=== PATIENT | female | born 1930 | race Hispanic/Latino ===

== ENCOUNTER 2017-06-07 11:44 | Inpatient (IN) | payer MEDICARE ==
[2017-06-07] MEDS ORDERED: Albuterol-Ipratrop 3 mg / 0.5 (3 ml) UD IH STA ×2 (11:58→13:28)
--- NOTE | 2017-06-07 12:02 | ED PDOC ---
HPI: SOB/CHF/COPD Time Seen by Provider: 06/07/17 11:49 Chief Complaint (Nursing): Shortness Of Breath History Per: Patient, EMS Onset/Duration Of Symptoms: Other (4 weeks) Current Symptoms Are (Timing): Still Present Severity: Mild Associated Symptoms: denies: Fever, Chest Pain, Productive Cough Additional Complaint(s): Brought by EMS c/o chronic SOB assoc with nonproductive cough. Denies fever or chest pain. Also c/o bruising to arms chest abd and torso x 4 weeks. Past Medical History Vital Signs: Last Vital Signs Temp 98.2 F 06/07/17 12:09 Pulse 89 06/07/17 15:20 Resp 28 H 06/07/17 12:09 BP 152/85 H 06/07/17 13:14 Pulse Ox 100 06/07/17 12:09 - Medical History PMH: HTN - Family History Family History: States: Unknown Family Hx - Social History Current smoker - smoking cessation education provided: No - Allergies Allergies/Adverse Reactions: Allergies Allergy/AdvReac Type Severity Reaction Status Date / Time Penicillins Allergy RASH Verified 06/07/17 11:48 Review of Systems ROS Statement: Except As Marked, All Systems Reviewed And Found Negative Constitutional: Negative for: Fever Cardiovascular: Negative for: Chest Pain Respiratory: Positive for: Cough, Shortness of Breath. Negative for: Sputum Skin: Positive for: Bruising Physical Exam - Reviewed Nursing Documentation Reviewed: Yes Vital Signs Reviewed: Yes - Physical Exam Appears: Positive for: Non-toxic, No Acute Distress Head Exam: Positive for: ATRAUMATIC, NORMAL INSPECTION, NORMOCEPHALIC Skin: Positive for: Warm. Negative for: Normal Color (Multiple ecchymosis some with bullae on arms bilat, chest and abd and torso) Eye Exam: Positive for: EOMI, Normal appearance, PERRL ENT: Positive for: Normal ENT Inspection Neck: Positive for: Normal, Painless ROM Cardiovascular/Chest: Positive for: Regular Rate, Rhythm Respiratory: Positive for: Rhonchi, Wheezing. Negative for: Respiratory Distress Gastrointestinal/Abdominal: Positive for: Normal Exam, Bowel Sounds, Soft Back: Positive for: Normal Inspection Extremity: Positive for: Swelling (4+ edema pitting lower ext bilat.). Negative for: Calf Tenderness Neurologic/Psych: Positive for: Alert, Oriented - Laboratory Results Result Diagrams: 06/07/17 12:25 06/07/17 12:25 Disposition - Clinical Impression Clinical Impression: SIRS (systemic inflammatory response syndrome), Pleural effusion - Patient ED Disposition Is Patient to be Admitted: Yes - Disposition Disposition Time: 15:24 Condition: FAIR Forms: [facility] (Algerian) - Pt Status Changed To: Hospital Disposition Of: Inpatient - Admit Certification Admit to Inpatient:: After my assessment, the patient will require hospitalization for at least two midnights. This is because of the severity of symptoms shown, intensity of services needed, and/or the medical risk in this patient being treated as an outpatient. - POA Present On Arrival: None
[2017-06-07] MEDS ORDERED: Albuterol-Ipratrop 3 mg / 0.5 (3 ml) UD ONE ×2 (12:06→13:56)
--- NOTE | 2017-06-07 12:33 | RAD ---
HISTORY: cough COMPARISON: No prior. FINDINGS: LUNGS: Prominence of the interstitial markings bilaterally, likely chronic, with superimposed pulmonary vascular congestion. PLEURA: Small bilateral pleural effusions. No pneumothorax apparent. CARDIOVASCULAR: Atherosclerotic aortic calcifications. Cardiomediastinal silhouette enlarged. OSSEOUS STRUCTURES: Degenerative changes. VISUALIZED UPPER ABDOMEN: Normal. OTHER FINDINGS: None. IMPRESSION: Prominence of the bilateral interstitial markings, likely chronic, with superimposed pulmonary vascular congestion and small bilateral pleural effusions.
[2017-06-07 12:38] LABS: BASO # 0.1 K/uL (0.0-0.2); BASO % 0.5 % (0.0-2.0); EOS # 0.1 K/uL (0.0-0.7); EOS % 0.3 % (0.0-4.0); HEMOGLOBIN 10.6 g/dL (12.0-16.0); LYMPH # 2.3 K/uL (1.0-4.3); LYMPH % 10.4 % (20.0-40.0); MEAN CELL VOLUME 88.9 fl (81.0-99.0); MEAN CORPUSCULAR HEMOGLOBIN 28.6 pg (27.0-31.0); MEAN CORPUSCULAR HGB CONC 32.2 g/dL (33.0-37.0); MEAN PLATELET VOLUME 7.6 fl (7.2-11.7); MONO # 1.4 K/uL (0.0-0.8); MONO % 6.6 % (0.0-10.0); NEUT # 17.8 K/uL (1.8-7.0); NEUT % 82.2 % (50.0-75.0); NRBC % 0.1 % (0.0-0.0); RBC 3.72 Mil/uL (3.80-5.20); RED CELL DISTRIBUTION WIDTH 14.2 % (11.5-14.5); WHITE BLOOD COUNT 21.6 K/uL (4.8-10.8)
[2017-06-07 12:48] LABS: ALBUMIN 3.6 g/dL (3.5-5.0); ALT/SGPT 53 U/L (9-52); AST/SGOT 127 U/L (14-36); BLOOD UREA NITROGEN 29 mg/dl (7-17); CALCIUM 9.1 mg/dL (8.4-10.2); GFR AFRICAN-AMERICAN > 60; GFR NON-AFRICAN AMERICAN > 60
[2017-06-07 12:50] LABS: VENOUS BLOOD GAS PCO2 81 mmHg (40-60); VENOUS BLOOD GAS PO2 26 mm/Hg (30-55); VENOUS BLOOD PH 7.21 (7.32-7.43)
[2017-06-07 12:54] LABS: B-TYPE NATRIURETIC PEPTIDE 7430 pg/ml (0-900)
[2017-06-07] MEDS ORDERED: Sodium Chloride 0.9% 1,000 ML IV STA ×2 (13:00→13:49)
[2017-06-07] MEDS ORDERED: Vancomycin 1 g Inj ONE (13:10)
[2017-06-07 14:39] LABS: INR 1.6 (0.9-1.2); PROTHROMBIN TIME 18.1 Seconds (9.8-13.1)
--- NOTE | 2017-06-07 15:51 | CP.PCM.HP ---
History of Present Illness - History of Present Illness History of Present Illness: CC: shortness of breath HPI: 86 F PMH HTN, presents to the emergency room with a one day history of severe, worsening, dyspnea, associated with bilateral lower extremity edema. The severe lower extremity edema has been persistent for the past couple weeks, and patient has been taking diuretics without improvement. Patient also presents with well circumscribed violaceous nonelevated no depressed patches, fragile/friable thin skin, and bleed when disrupted. Patient has seen granulizing machine operator who prescribed a cream and oral steroids which helped approximately 1-2 months ago. 5 days prior to admission patient was reinitiated on oral steroids for re-eruption of these lesions. 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 Patient VBG showed some retention, and pt was placed on BIPAP. Lasix administered, upon berumen insertion, 1000cc output urine. UA and UCx pending. WBC 21K, on arrival to ER pt was tachycardic. la 3.5. BNP 7430.+coagulopathy INR 1.6. AST/ALT 127/53. Procalcitonin pending. HD stable, NAD. Admit to TELE for SIRS, respiratory acidosis, dyspnea due to possible CHF / volume overload Echo ordered, rule out PE, azotemia, coagulopathy. ROS: per HPI all other systems reviewed and negative FH: HTN, DM other history as below. Present on Admission - Present on Admission Any Indicators Present on Admission: No Past Patient History - Past Social History Smoking Status: Never Smoked - CARDIAC Hx Hypertension: Yes - PSYCHIATRIC Hx Substance Use: No - SURGICAL HISTORY Hx Surgeries: Yes - ANESTHESIA Hx Anesthesia: No Meds Allergies/Adverse Reactions: Allergies Allergy/AdvReac Type Severity Reaction Status Date / Time Penicillins Allergy RASH Verified 06/07/17 11:48 Physical Exam - Constitutional Appears: Non-toxic, No Acute Distress - Head Exam Head Exam: ATRAUMATIC, NORMOCEPHALIC - Eye Exam Eye Exam: EOMI, Normal appearance, PERRL Pupil Exam: NORMAL ACCOMODATION - ENT Exam ENT Exam: Mucous Membranes Moist, Normal Oropharynx - Respiratory Exam Respiratory Exam: Rales, Wheezes, NORMAL BREATHING PATTERN - Cardiovascular Exam Cardiovascular Exam: RRR, +S1, +S2 - GI/Abdominal Exam GI & Abdominal Exam: Normal Bowel Sounds, Soft. absent: Mass, Tenderness - Extremities Exam Extremities exam: Positive for: normal capillary refill, pedal edema, pedal pulses present - Back Exam Back exam: absent: CVA tenderness (L), CVA tenderness (R) - Neurological Exam Neurological exam: Alert, Oriented x3 - Psychiatric Exam Psychiatric exam: Normal Affect, Normal Mood - Skin Skin Exam: Dry, Warm Results - Vital Signs Recent Vital Signs: Last Vital Signs Temp 98.2 F 06/07/17 12:09 Pulse 83 06/07/17 15:49 Resp 15 06/07/17 15:49 BP 156/92 H 06/07/17 15:49 Pulse Ox 100 06/07/17 15:49 - Labs Result Diagrams: 06/07/17 12:25 06/07/17 12:25 Labs: Laboratory Results - last 24 hr 06/07/17 06/07/17 06/07/17 12:25 12:25 12:41 WBC 21.6 H RBC 3.72 L Hgb 10.6 L Hct 33.1 L MCV 88.9 MCH 28.6 MCHC 32.2 L RDW 14.2 Plt Count 585 H MPV 7.6 Neut % (Auto) 82.2 H Lymph % (Auto) 10.4 L Person % (Auto) 6.6 Eos % (Auto) 0.3 Baso % (Auto) 0.5 Neut # 17.8 H Lymph # 2.3 Person # 1.4 H Eos # 0.1 Baso # 0.1 PT INR D-Dimer, Quantitative pO2 26 L VBG pH 7.21 L VBG pCO2 81 H* VBG HCO3 24.8 VBG Total CO2 34.9 H VBG O2 Sat (Calc) 44.3 VBG Base Excess 2.0 VBG Potassium 3.9 Glucose 195 H Lactate 3.5 H FiO2 21.0 Crit Value Called To Duncan fonseca Crit Value Called By 23 Crit Value Read Back Y Blood Gas Notified Time 1245 Sodium 140 136.0 Potassium 4.1 Chloride 99 100.0 Carbon Dioxide 29 Anion Gap 16 BUN 29 H Creatinine 0.7 Est GFR ( Amer) > 60 Est GFR (Non-Af Amer) > 60 Random Glucose 197 H Calcium 9.1 Total Bilirubin 0.6 AST 127 H ALT 53 H Alkaline Phosphatase 101 Troponin I 0.0750 NT-Pro-B Natriuret Pep 7430 H Total Protein 7.3 Albumin 3.6 Globulin 3.7 Albumin/Globulin Ratio 1.0 Venous Blood Potassium 3.9 06/07/17 13:48 WBC RBC Hgb Hct MCV MCH MCHC RDW Plt Count MPV Neut % (Auto) Lymph % (Auto) Person % (Auto) Eos % (Auto) Baso % (Auto) Neut # Lymph # Person # Eos # Baso # PT 18.1 H INR 1.6 H D-Dimer, Quantitative 574 H pO2 VBG pH VBG pCO2 VBG HCO3 VBG Total CO2 VBG O2 Sat (Calc) VBG Base Excess VBG Potassium Glucose Lactate FiO2 Crit Value Called To Crit Value Called By Crit Value Read Back Blood Gas Notified Time Sodium Potassium Chloride Carbon Dioxide Anion Gap BUN Creatinine Est GFR ( Amer) Est GFR (Non-Af Amer) Random Glucose Calcium Total Bilirubin AST ALT Alkaline Phosphatase Troponin I NT-Pro-B Natriuret Pep Total Protein Albumin Globulin Albumin/Globulin Ratio Venous Blood Potassium Assessment & Plan - Assessment and Plan (Free Text) Plan: 86 F PMH HTN, presents to the emergency room with a one day history of severe, worsening, dyspnea, associated with bilateral lower extremity edema. The severe lower extremity edema has been persistent for the past couple weeks, and patient has been taking diuretics without improvement. Patient also presents with well circumscribed violaceous nonelevated no depressed patches, fragile/ friable thin skin, and bleed when disrupted all over body. Patient has seen granulizing machine operator who prescribed a cream and oral steroids which helped approximately 1-2 months ago. 5 days prior to admission patient was reinitiated on oral steroids for re-eruption of these lesions. 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 Patient VBG showed some retention, and pt was placed on BIPAP. Lasix administered, upon berumen insertion, 1000cc output urine. UA and UCx pending. WBC 21K, on arrival to ER pt was tachycardic. la 3.5. BNP 7430.+coagulopathy INR 1.6. AST/ALT 127/53. Procalcitonin pending. HD stable, NAD. Admit to TELE for SIRS, respiratory acidosis, dyspnea due to possible CHF / volume overload Echo ordered, rule out PE, azotemia, coagulopathy. SIRS WBC 21K (poss 2/2 steroids but with high neutr, no bands), afebrile, HR 108, tachypneic in ED, LA 3.5, repeat pending Vancomycin one dose given UA, UCX pending, will determine abx based on results +berumen with 1000cc out on insertion Procalcitonin pending CXR+ interstitial markings, chronic with pulm vascular congestion and small bilateral pleural effusions Respiratory Acidosis Dyspnea possible due to CHF/volume overload rule out PE, CTA pending CXR+ interstitial markings, chronic with pulm vascular congestion and small bilateral pleural effusions pH 7.21, pCO2 81 patient on bipap, saturating well, mentating well Echo pending repeat ABG in AM. continue bronchodilators PRN continue diuresis with LASIX 40 IV Q12 Coagulopathy Elevated Transaminases AST/ALT 127/53 INR 1.6 monitor Skin Lesions well circumscribed violaceous nonelevated no depressed patches, fragile/ friable thin skin, and bleed when disrupted all over bod Dexamethasone 2 mg daily patient did not like taking prednisone Azotemia monitor HTN Lisinopril initiated as patient does not have home med name VTE ppx Lovenox
[2017-06-07] MEDS ORDERED: Sodium Chloride 0.9% 50 ML IV ONE (16:01)
[2017-06-07] MEDS ORDERED: Iodixanol 320 MG/ML 100 ML BOTTLE IV ONE (16:01)
--- NOTE | 2017-06-07 18:10 | CT ---
PROCEDURE: CT Chest with contrast (Pulmonary Angiogram) HISTORY: Elevated d dimer COMPARISON: 2017. Single-view chest TECHNIQUE: Axial computed tomography images were obtained of the chest in the pulmonary arterial phase of enhancement. Coronal and sagittal reformatted images were created and reviewed. Intravenous contrast dose: 65 cc Visipaque 320 Mean Hounsfield unit values in the main pulmonary artery: 362.48 Radiation dose: Total exam DLP = 190.21 mGy-cm. This CT exam was performed using one or more of the following dose reduction techniques: Automated exposure control, adjustment of the mA and/or kV according to patient size, and/or use of iterative reconstruction technique. FINDINGS: PULMONARY ARTERIES: Unremarkable. No pulmonary embolism. AORTA: No acute findings. No thoracic aortic aneurysm. LUNGS: Lower lobe atelectasis. Ground-glass appearance to pulmonary parenchyma suggests a component of pulmonary edema. PLEURAL SPACES: Small bilaterally symmetric pleural effusions. HEART: Cardiomegaly, mild CHF. Incompletely visualized small pericardial effusion. LYMPH NODES: No lymphadenopathy. BONES, CHEST WALL: Unremarkable. No fracture or destructive lesion OTHER FINDINGS: Cholelithiasis without CT evidence of acute cholecystitis. IMPRESSION: Unremarkable CT pulmonary angiogram. No pulmonary embolus. Cardiomegaly, CHF and mild pulmonary edema. Incompletely visualized pericardial effusion. Cholelithiasis without CT evidence of acute cholecystitis.
--- NOTE | 2017-06-07 21:34 | CARD ---
APPROVED REPORT EKG Measurement Heart [id number] <Conclusion> Sinus tachycardia Nonspecific T wave abnormality Abnormal ECG
[2017-06-08 01:16] LABS: URINE APPEARANCE CLEAR (CLEAR); URINE BILIRUBIN NEGATIVE (NEGATIVE); URINE BLOOD NEGATIVE (NEGATIVE); URINE COLOR YELLOW (YELLOW); URINE GLUCOSE (UA) NEG (Normal); URINE LEUKOCYTE ESTERASE NEG Leu/uL (Negative); URINE NITRATE NEGATIVE (NEGATIVE); URINE PROTEIN NEGATIVE (NEGATIVE); URINE UROBILINOGEN 0.2-1.0 mg/dL (0.2-1.0)
[2017-06-08 05:43] LABS: BLOOD UREA NITROGEN 25 mg/dl (7-17); CALCIUM 8.5 mg/dL (8.4-10.2); GFR AFRICAN-AMERICAN > 60; GFR NON-AFRICAN AMERICAN > 60
[2017-06-08 05:50] LABS: BASO % 0.1 % (0.0-2.0); HEMOGLOBIN 8.8 g/dL (12.0-16.0); LYMPH # 1.2 K/uL (1.0-4.3); LYMPH % 21.2 % (20.0-40.0); MEAN CELL VOLUME 88.5 fl (81.0-99.0); MEAN CORPUSCULAR HEMOGLOBIN 28.7 pg (27.0-31.0); MEAN CORPUSCULAR HGB CONC 32.4 g/dL (33.0-37.0); MEAN PLATELET VOLUME 7.7 fl (7.2-11.7); MONO # 0.5 K/uL (0.0-0.8); MONO % 8.2 % (0.0-10.0); NEUT # 4.1 K/uL (1.8-7.0); NEUT % 70.5 % (50.0-75.0); NRBC % 0.1 % (0.0-0.0); RBC 3.08 Mil/uL (3.80-5.20); RED CELL DISTRIBUTION WIDTH 13.9 % (11.5-14.5); WHITE BLOOD COUNT 5.8 K/uL (4.8-10.8)
[2017-06-08] MEDS: Enoxaparin 40 mg Syringe SC SCH (08:38)
[2017-06-08] MEDS ORDERED: Potassium Chloride 20 mEq ER Tab PO ONE ×2 (08:47→19:18)
--- NOTE | 2017-06-08 10:15 | CP.PCM.PN ---
Subjective - Date & Time of Evaluation Date of Evaluation: 06/08/17 Time of Evaluation: 09:30 - Subjective Subjective: SOB better - Bipap changed to 3 liters NC noted tachycardia- restarted Coreg denies CP sl SOB but very much better denies pain nor itching of skin lesions [facility] called to get med list Called Dr Victor- out of town - I was able to get copy of last progress note- reveiwed- Pt has hx of HTN, HLD,Bullous skin lesion, DM,CKD - on Lasix,Coreg Pravastatin and prednisone at home Objective - Vital Signs/Intake and Output Vital Signs (last 24 hours): Temp Pulse Resp BP Pulse Ox 97.6 F 82 20 101/73 100 06/08/17 08:00 06/08/17 09:00 06/08/17 08:00 06/08/17 08:39 06/08/17 08:00 Intake and Output: 06/08/17 06/08/17 06:59 18:59 Intake Total 300 Output Total 2100 Balance -1800 - Medications Medications: Current Medications Dexamethasone (Decadron) 2 mg PO DAILY [facility] Last Admin: 06/08/17 08:38 Dose: 2 mg Enoxaparin Sodium (Lovenox) 40 mg SC DAILY [facility] PRN Reason: Protocol Last Admin: 06/08/17 08:38 Dose: 40 mg Furosemide (Lasix) 40 mg IVP Q12 [facility] Last Admin: 06/08/17 08:38 Dose: 40 mg Lisinopril (Zestril) 5 mg PO DAILY [facility] Last Admin: 06/08/17 08:39 Dose: 5 mg - Labs Labs: 06/08/17 04:20 06/08/17 04:20 PT 18.1 Seconds (9.8-13.1) H 06/07/17 13:48 INR 1.6 (0.9-1.2) H 06/07/17 13:48 - Constitutional Appears: Chronically Ill - Head Exam Head Exam: ATRAUMATIC, NORMAL INSPECTION, NORMOCEPHALIC - Eye Exam Eye Exam: EOMI, Normal appearance Pupil Exam: NORMAL ACCOMODATION - ENT Exam ENT Exam: Mucous Membranes Dry, Normal External Ear Exam Additional comments: no thrush - Neck Exam Neck Exam: Full ROM. absent: Meningismus - Respiratory Exam Respiratory Exam: Rales, Rhonchi. absent: Wheezes Additional comments: basilar rales - Cardiovascular Exam Cardiovascular Exam: Tachycardia, REGULAR RHYTHM, +S1, +S2 - GI/Abdominal Exam GI & Abdominal Exam: Soft, Normal Bowel Sounds. absent: Tenderness - Extremities Exam Extremities Exam: Normal Capillary Refill, Pedal Edema. absent: Calf Tenderness - Back Exam Back Exam: Full ROM. absent: CVA tenderness (L), CVA tenderness (R) - Neurological Exam Neurological Exam: Alert, Awake, Oriented x3 Neuro motor strength exam: Left Upper Extremity: 5, Right Upper Extremity: 5, Left Lower Extremity: 5, Right Lower Extremity: 5 - Psychiatric Exam Psychiatric exam: Normal Affect, Normal Mood - Skin Skin Exam: Dry, Normal Color, Warm Assessment and Plan (1) Acute respiratory failure with hypoxia Status: Acute (2) Acute exacerbation of CHF (congestive heart failure) Status: Acute (3) Leukocytosis Status: Acute (4) Bullous lesion Status: Chronic (5) Anemia Status: Chronic (6) HTN (hypertension) Status: Chronic (7) SIRS (systemic inflammatory response syndrome) Status: Acute (8) DVT prophylaxis Status: Acute - Assessment and Plan (Free Text) Assessment: 86 y/o lady with hx of HTN, HLD, CKD,DM, and Bullous skin lesion, was brought in bec of SOB. ProBNP elevated. CXR shows Pulm Vascular congestion. (1) Acute respiratory failure with hypoxia sec to CHF exacerbation Status: Acute Pt was initially on Bipap, pt doing better after diuresis, will decrease to 3 liter NC Pulm consult (2) Acute exacerbation of CHF (congestive heart failure) Status: Acute ppprob systolic dysfunction ECHO rpt ProBNP cont IV Lasix restart Coreg no ED inh as ther was a question of poss drug eruption with Quinapril as outpt Got pt's med list from [place] as pt cannot remember meds she takes, I also called Dr Victor's office for more info Cardio consult (3) Leukocytosis Status: Acute prob sec to steroids , normalized without abx (4) Bullous lesion Status: Chronic Pt states she had skin biopsy done by Lighting Engineer ( ? Dr Arndt in [place]) and was started on Prednisone cont Decadron Dr [place] rec to start Doxy for the bullous lesions (5) Anemia Status: Chronic will monitor (6) HTN (hypertension) Status: Chronic reveiwed home meds obrained from [place] Coreg - cont IV lasix - d/c LIsinopril ( there was a ? of drug eruption when pt took Quinapril/HCTZ accdg to Dr Victor's office progress note) (7) SIRS (systemic inflammatory response syndrome) Status: Acute No signs of infection however pt came with SIRS sxs. (8) DVT prophylaxis Status: Acute Lovenox
--- NOTE | 2017-06-08 11:05 | CP.PCM.CON ---
History of Present Illness - History of Present Illness History of Present Illness: 86 F PMH HTN, presents to the emergency room with a one day history of severe, worsening, dyspnea, associated with bilateral lower extremity edema. The severe lower extremity edema has been persistent for the past couple weeks, and patient has been taking diuretics without improvement. Also pt has a rash Bullous Pemphigoid? and was recently given steroids PMH: Rheumatoid Arthritis EKG: NSR Monitor shows bouts of Tachycardia BNP 7430 Troponin: neg Hgb: 8.8 Past Patient History - Past Medical History & Family History Past Medical History?: Yes - Past Social History Smoking Status: Never Smoked - CARDIAC Hx Cardiac Disorders: Yes Hx Hypertension: Yes - PULMONARY Hx Respiratory Disorders: No - NEUROLOGICAL Hx Neurological Disorder: No - HEENT Hx HEENT Problems: No - RENAL Hx Chronic Kidney Disease: No - ENDOCRINE/METABOLIC Hx Endocrine Disorders: No - HEMATOLOGICAL/ONCOLOGICAL Hx Blood Disorders: No - INTEGUMENTARY Hx Dermatological Problems: No - MUSCULOSKELETAL/RHEUMATOLOGICAL Hx Musculoskeletal Disorders: No Hx Falls: No - GASTROINTESTINAL Hx Gastrointestinal Disorders: No - GENITOURINARY/GYNECOLOGICAL Hx Genitourinary Disorders: No - PSYCHIATRIC Hx Psychophysiologic Disorder: No Hx Substance Use: No - SURGICAL HISTORY Hx Surgeries: Yes Hx Cataract Extraction: Yes (right) Hx Orthopedic Surgery: Yes (left elbow surgery,bilateral knee replacement) - ANESTHESIA Hx Anesthesia: Yes Hx Anesthesia Reactions: No Hx Malignant Hyperthermia: No Has any member of the family had a problem w/ anesthesia?: No Meds Allergies/Adverse Reactions: Allergies Allergy/AdvReac Type Severity Reaction Status Date / Time Penicillins Allergy RASH Verified 06/07/17 11:48 - Medications Medications: Current Medications Dexamethasone (Decadron) 2 mg PO DAILY [facility] Last Admin: 06/08/17 08:38 Dose: 2 mg Enoxaparin Sodium (Lovenox) 40 mg SC DAILY [facility] PRN Reason: Protocol Last Admin: 06/08/17 08:38 Dose: 40 mg Furosemide (Lasix) 40 mg IVP Q12 [facility] Last Admin: 06/08/17 08:38 Dose: 40 mg Lisinopril (Zestril) 5 mg PO DAILY [facility] Last Admin: 06/08/17 08:39 Dose: 5 mg Physical Exam - Constitutional Appears: Well - Head Exam Head Exam: NORMAL INSPECTION - Eye Exam Eye Exam: Normal appearance - ENT Exam ENT Exam: Normal Exam - Neck Exam Neck exam: Positive for: Normal Inspection - Respiratory Exam Respiratory Exam: Rales - Cardiovascular Exam Cardiovascular Exam: REGULAR RHYTHM - Skin Skin Exam: Rash Additional comments: Bullous Pemphigoid ?? Results - Vital Signs Recent Vital Signs: Last Vital Signs Temp 97.6 F 06/08/17 08:00 Pulse 82 06/08/17 09:00 Resp 20 06/08/17 08:00 BP 101/73 06/08/17 08:39 Pulse Ox 100 06/08/17 08:00 - Labs Result Diagrams: 06/08/17 04:20 06/08/17 04:20 Labs: Laboratory Results - last 24 hr 06/07/17 06/07/17 06/07/17 12:25 12:25 12:41 WBC 21.6 H RBC 3.72 L Hgb 10.6 L Hct 33.1 L MCV 88.9 MCH 28.6 MCHC 32.2 L RDW 14.2 Plt Count 585 H MPV 7.6 Neut % (Auto) 82.2 H Lymph % (Auto) 10.4 L Pierce % (Auto) 6.6 Eos % (Auto) 0.3 Baso % (Auto) 0.5 Neut # 17.8 H Lymph # 2.3 Pierce # 1.4 H Eos # 0.1 Baso # 0.1 PT INR D-Dimer, Quantitative pO2 26 L VBG pH 7.21 L VBG pCO2 81 H* VBG HCO3 24.8 VBG Total CO2 34.9 H VBG O2 Sat (Calc) 44.3 VBG Base Excess 2.0 VBG Potassium 3.9 Glucose 195 H Lactate 3.5 H FiO2 21.0 Crit Value Called To Duncan fonseca Crit Value Called By 23 Crit Value Read Back Y Blood Gas Notified Time 1245 Sodium 140 136.0 Potassium 4.1 Chloride 99 100.0 Carbon Dioxide 29 Anion Gap 16 BUN 29 H Creatinine 0.7 Est GFR ( Amer) > 60 Est GFR (Non-Af Amer) > 60 Random Glucose 197 H Lactic Acid Calcium 9.1 Total Bilirubin 0.6 AST 127 H ALT 53 H Alkaline Phosphatase 101 Troponin I 0.0750 NT-Pro-B Natriuret Pep 7430 H Total Protein 7.3 Albumin 3.6 Globulin 3.7 Albumin/Globulin Ratio 1.0 Venous Blood Potassium 3.9 Urine Color Urine Appearance Urine pH Ur Specific [place] Urine Protein Urine Glucose (UA) Urine Ketones Urine Blood Urine Nitrate Urine Bilirubin Urine Urobilinogen Ur Leukocyte Esterase 06/07/17 06/07/17 06/07/17 13:48 15:50 18:55 WBC RBC Hgb Hct MCV MCH MCHC RDW Plt Count MPV Neut % (Auto) Lymph % (Auto) Pierce % (Auto) Eos % (Auto) Baso % (Auto) Neut # Lymph # Pierce # Eos # Baso # PT 18.1 H INR 1.6 H D-Dimer, Quantitative 574 H pO2 VBG pH VBG pCO2 VBG HCO3 VBG Total CO2 VBG O2 Sat (Calc) VBG Base Excess VBG Potassium Glucose Lactate FiO2 Crit Value Called To Crit Value Called By Crit Value Read Back Blood Gas Notified Time Sodium Potassium Chloride Carbon Dioxide Anion Gap BUN Creatinine Est GFR ( Amer) Est GFR (Non-Af Amer) Random Glucose Lactic Acid 1.4 Calcium Total Bilirubin AST ALT Alkaline Phosphatase Troponin I NT-Pro-B Natriuret Pep Total Protein Albumin Globulin Albumin/Globulin Ratio Venous Blood Potassium Urine Color Yellow Urine Appearance Clear Urine pH 6.0 Ur Specific [place] 1.010 Urine Protein Negative Urine Glucose (UA) Neg Urine Ketones Negative Urine Blood Negative Urine Nitrate Negative Urine Bilirubin Negative Urine Urobilinogen 0.2-1.0 Ur Leukocyte Esterase Neg 06/08/17 06/08/17 04:20 04:20 WBC 5.8 D RBC 3.08 L Hgb 8.8 L Hct 27.2 L MCV 88.5 MCH 28.7 MCHC 32.4 L RDW 13.9 Plt Count 306 D MPV 7.7 Neut % (Auto) 70.5 Lymph % (Auto) 21.2 Pierce % (Auto) 8.2 Eos % (Auto) 0.0 Baso % (Auto) 0.1 Neut # 4.1 Lymph # 1.2 Pierce # 0.5 Eos # 0.0 Baso # 0.0 PT INR D-Dimer, Quantitative pO2 VBG pH VBG pCO2 VBG HCO3 VBG Total CO2 VBG O2 Sat (Calc) VBG Base Excess VBG Potassium Glucose Lactate FiO2 Crit Value Called To Crit Value Called By Crit Value Read Back Blood Gas Notified Time Sodium 142 Potassium 3.4 L Chloride 100 Carbon Dioxide 32 H Anion Gap 13 BUN 25 H Creatinine 0.7 Est GFR ( Amer) > 60 Est GFR (Non-Af Amer) > 60 Random Glucose 130 H Lactic Acid Calcium 8.5 Total Bilirubin AST ALT Alkaline Phosphatase Troponin I NT-Pro-B Natriuret Pep Total Protein Albumin Globulin Albumin/Globulin Ratio Venous Blood Potassium Urine Color Urine Appearance Urine pH Ur Specific [place] Urine Protein Urine Glucose (UA) Urine Ketones Urine Blood Urine Nitrate Urine Bilirubin Urine Urobilinogen Ur Leukocyte Esterase Assessment & Plan (1) Acute left systolic heart failure Assessment and Plan: agree with Lasix daily and Coreg to control tachycardia Status: Acute
[2017-06-08] MEDS ORDERED: Levalbuterol 1.25 MG/3 ML Inhal Soln UD INH PRN (11:31)
--- NOTE | 2017-06-08 16:20 | CARD ---
APPROVED REPORT EKG Measurement Heart [id number] <Conclusion> Sinus rhythm with occasional premature ventricular complexes and fusion complexes Anterior infarct, age undetermined ST & T wave abnormality, consider anterior ischemia Abnormal ECG
--- NOTE | 2017-06-08 16:47 | CARD ---
APPROVED REPORT EXAM: Two-dimensional and M-mode echocardiogram with Doppler and color Doppler. Other Information Quality : FairRhythm : INDICATION Dyspnea Pleural Effusion 2D DIMENSIONS IVSd1.19 (0.7-1.1cm)LVDd4.12 (3.9-5.9cm) PWd2.01 (0.7-1.1cm)IVSs1.26 (0.8-1.2cm) LVDs3.75 (2.5-4.0cm)FS (%) 9.0 % PWs1.60 (0.8-1.2cm)LVEF (%)40.0 (>50%) M-Mode DIMENSIONS IVSd0.34 (0.7-1.1cm)LVDd5.36 (4.0-5.6cm) PWd0.34 (0.7-1.1cm)IVSs1.14 cm FS (%) 32 %LVDs3.65 (2.0-3.8cm) PWs2.62 cm Mitral Valve MV E Hcqjekws54.0cm/sMV E Peak Gr.141mmHgMV A Lizjwyin88.7cm/s E/A ratio0.9 TDI Lateral E' Peak V12.22cm/sE/Lateral E'7.2E/Medial E'0.0 Tricuspid Valve TR Peak Npoikylb108qc/sRAP [id number] Peak Gr.38mmHg [id number] LEFT VENTRICLE The left ventricle is normal size. There is normal left ventricular wall thickness. The systolic function is moderately impaired. Apical and Septal hypokinesis Transmitral Doppler flow pattern is Grade I-abnormal relaxation pattern. RIGHT VENTRICLE The right ventricle is normal size. There is normal right ventricular wall thickness. The right ventricular systolic function is normal. ATRIA The left atrium is mildly dilated. The right atrium is moderately dilated. AORTIC VALVE The aortic valve is mildly thickened. No aortic regurgitation is present. There is no aortic valvular stenosis. MITRAL VALVE The mitral valve is mildly thickened. There is no mitral valve stenosis. Mitral regurgitation is moderate. TRICUSPID VALVE The tricuspid valve is normal in structure. There is mild tricuspid regurgitation. There is mild to moderate pulmonary hypertension. PULMONIC VALVE The pulmonary valve is normal in structure. There is trace pulmonic valvular regurgitation. GREAT VESSELS The aortic root is normal in size. The IVC was not visualized. PERICARDIAL EFFUSION There is a small circumferential pericardial effusion. There is small left pleural effusion. <Conclusion> The left ventricle is normal size. There is normal left ventricular wall thickness. The systolic function is moderately impaired. Apical and Septal hypokinesis Transmitral Doppler flow pattern is Grade I-abnormal relaxation pattern. Mitral regurgitation is moderate. There is mild tricuspid regurgitation. There is mild to moderate pulmonary hypertension.
[2017-06-08] MEDS: Insulin Lispro (humaLOG) 100 Units/ml Inj SC SCH (17:13)
--- NOTE | 2017-06-08 21:23 | CON ---
DATE: HISTORY OF PRESENT ILLNESS: Ms. Suazo is an 86-year-old female who was admitted via the emergency room because of shortness of breath and edema of the legs. She indicates that this has been worsened over the past several weeks. She was seen by her primary care doctor because of bullous skin lesions and was referred to a rice milling supervisor who had it biopsied. She was placed on steroids, which improved the lesions, but then a second course of steroids, made thins worsen.. She indicates that she became short of breath and she blamed the shortness of breath with some reaction from the steroids. Her legs also swelled up and she, therefore, sought help in the hospital. PAST MEDICAL HISTORY: Hypertension, knee surgeries, shoulder surgeries, and rheumatoid arthritis. FAMILY HISTORY: Nonrevealing. SOCIAL HISTORY: She does not smoke or drink and lives alone, but she has a very supportive daughter. PHYSICAL EXAMINATION: GENERAL: The patient is alert and oriented, appears to be much more comfortable since admission. She was originally placed on a BiPAP machine, but now is on nasal cannula oxygen. SKIN: Shows diffuse bullous lesions, which are drying up. VITAL SIGNS: Blood pressure 101/73, pulse of 82, respiratory rate 20 per minute. She is afebrile. HEENT: Mouth shows fair hygiene. NECK: JVP flat. LUNGS: Fair aeration bilaterally with few basal rales. HEART: S1 and S2. Few extrasystole. BREASTS: Normal. ABDOMEN: Soft, nontender, no organomegaly. EXTREMITIES: A 2+ pitting pedal edema bilaterally. CENTRAL NERVOUS SYSTEM: Grossly intact. LABORATORY DATA: WBC 5.8, down from 21.6; hemoglobin 8.8, down from 10.6; platelet count 306,000. Sodium 142, potassium 3.4, BUN 25, and creatinine 0.7. ProBNP 7430. Troponin 0.0750. ABGs; pH of 7.21, pCO2 of 81, bicarbonate 24.8, and O2 saturation 44.3, this is venous blood gas. Chest x-ray, prominence of bilateral interstitial markings, likely chronic with superimposed pulmonary vascular congestion, bilateral pleural effusions. CT scan of the chest is remarkable for no evidence of pulmonary embolism, cardiomegaly, CHF, mild pulmonary edema, incompletely visualized pericardial effusion. EKG; sinus tachycardia, nonspecific ST-T abnormalities. 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 One also has to rule out shortness of breath due to rheumatoid lung disease and also infectious etiology of shortness of breath in a patient with bullous skin lesions despite not having fever, chills, or cough. The patient also has a history hypertension and rheumatoid arthritis. PLAN: Would be aerosolized bronchodilators, BiPAP at nighttime. Continue therapy as ordered. Oxygen supplementation already ordered. We will give low dose of Vibramycin q. 12 hours to see if it helps with the bullous pemphigoid or upper respiratory tract inflammation. The patient has already been started back on Decadron to help decrease skin lesions and pulmonary problems. Cardiology evaluation, possible echocardiogram would be in order to evaluate for pericardial effusion. We will continue to follow with you. Further therapy will depend on findings. Edwin East MD MTDJessica
[2017-06-09] MEDS: Insulin Lispro (humaLOG) 100 Units/ml Inj SC SCH ×5 (00:24→23:12)
[2017-06-09 06:04] LABS: MEAN CELL VOLUME 88.6 fl (81.0-99.0); MEAN CORPUSCULAR HEMOGLOBIN 28.5 pg (27.0-31.0); MEAN CORPUSCULAR HGB CONC 32.2 g/dL (33.0-37.0); RBC 3.14 Mil/uL (3.80-5.20); RED CELL DISTRIBUTION WIDTH 14.1 % (11.5-14.5); WHITE BLOOD COUNT 8.1 K/uL (4.8-10.8)
[2017-06-09 06:20] LABS: INR 1.2 (0.9-1.2); PROTHROMBIN TIME 13.1 Seconds (9.8-13.1)
[2017-06-09 06:23] LABS: LDL CHOLESTEROL 104 mg/dL (0-129)
[2017-06-09 06:30] LABS: BLOOD UREA NITROGEN 32 mg/dl (7-17); CALCIUM 8.5 mg/dL (8.4-10.2); GFR AFRICAN-AMERICAN > 60; GFR NON-AFRICAN AMERICAN > 60; HDL CHOLESTEROL 22 MG/DL (30-70)
[2017-06-09 06:34] LABS: B-TYPE NATRIURETIC PEPTIDE 16800 pg/ml (0-900)
[2017-06-09] MEDS: Enoxaparin 40 mg Syringe SC SCH (08:22)
--- NOTE | 2017-06-09 09:08 | CON ---
DATE: HISTORY OF PRESENT ILLNESS: The patient with a past medical history of hypertension and has been referred autoimmune disease? The patient recently had skin biopsy, I am not sure what are the diagnoses; pemphigus? The patient started on steroid in the recent past and she is still taking steroid and admitted with shortness of breath, weakness and the patient has been followed up by Dr. Fontana as outpatient and I am not sure if the patient has detail of any kidney problem at the present. We will try to get further information from Dr. Fontana. PAST MEDICAL HISTORY: As we mentioned above, related to hypertension. In addition to the skin disease, diffuse rash with recent skin biopsy. FAMILY HISTORY: Diabetes mellitus. REVIEW OF SYSTEMS: The rest of the systems reviewed as okay except what has been mentioned above. PHYSICAL EXAMINATION: VITAL SIGNS: Blood pressure 145/81, pulse 108. NECK: Supple. CHEST: Few rhonchi. HEART: No rubs. ABDOMEN: Soft. EXTREMITIES: Have 1+ pitting edema. SKIN: Showed diffuse skin lesion throughout the chest wall, extremity among other area. LABORATORY DATA: Labs showed BUN 29, creatinine 0.7. The rest of the chemistry is okay. Urinalysis nonspecific. IMPRESSION: The patient diagnosed what appeared to be autoimmune disease. She is receiving steroid. I will order perhaps PJ and double-stranded DNA at the present until we get further information from the skin biopsy. The patient also has azotemia, probably related to the congestive heart failure and she has been receiving treatment. Eric Tafoya MD
--- NOTE | 2017-06-09 09:23 | CP.PCM.PN ---
Subjective - Date & Time of Evaluation Date of Evaluation: 06/09/17 Time of Evaluation: 09:23 - Subjective Subjective: sob im proving no chest pains skin rash present with some new blisters on back Objective - Vital Signs/Intake and Output Vital Signs (last 24 hours): Temp Pulse Resp BP Pulse Ox 97.1 F L 74 20 161/65 H 100 06/09/17 08:00 06/09/17 08:18 06/09/17 08:00 06/09/17 08:21 06/09/17 08:00 Intake and Output: 06/09/17 06/09/17 06:59 18:59 Intake Total 300 Output Total 1000 Balance -700 - Medications Medications: Current Medications Carvedilol (Coreg) 12.5 mg PO Q12 [facility] Last Admin: 06/09/17 08:18 Dose: 12.5 mg Dexamethasone (Decadron) 2 mg PO DAILY [facility] Last Admin: 06/09/17 08:19 Dose: 2 mg Enoxaparin Sodium (Lovenox) 40 mg SC DAILY [facility] PRN Reason: Protocol Last Admin: 06/09/17 08:22 Dose: 40 mg Famotidine (Pepcid) 20 mg PO BID [facility] Last Admin: 06/09/17 08:22 Dose: 20 mg Furosemide (Lasix) 40 mg IVP Q12 [facility] Last Admin: 06/09/17 08:21 Dose: 40 mg Doxycycline Hyclate 100 mg/ (Sodium Chloride) 100 mls @ 100 mls/hr IVPB Q12 [facility] PRN Reason: Protocol Last Admin: 06/08/17 21:30 Dose: 100 mls/hr Insulin Human Lispro (Humalog) 0 units SC ACHS [facility] PRN Reason: Protocol Last Admin: 06/09/17 08:19 Dose: 2 units Levalbuterol HCl (Xopenex) 1.25 mg INH RQ8 PRN PRN Reason: Shortness of Breath - Labs Labs: 06/09/17 05:30 06/09/17 05:30 PT 13.1 Seconds (9.8-13.1) D 06/09/17 05:30 INR 1.2 (0.9-1.2) 06/09/17 05:30 - Constitutional Appears: Chronically Ill - Head Exam Head Exam: ATRAUMATIC, NORMAL INSPECTION, NORMOCEPHALIC - Eye Exam Eye Exam: EOMI, Normal appearance, PERRL Pupil Exam: NORMAL ACCOMODATION, PERRL - ENT Exam ENT Exam: Mucous Membranes Moist, Normal Exam - Neck Exam Neck Exam: Full ROM, Normal Inspection. absent: Lymphadenopathy - Respiratory Exam Respiratory Exam: Decreased Breath Sounds, Rales, NORMAL BREATHING PATTERN - Cardiovascular Exam Cardiovascular Exam: REGULAR RHYTHM, +S1, +S2. absent: Murmur - GI/Abdominal Exam GI & Abdominal Exam: Soft, Normal Bowel Sounds. absent: Tenderness - Rectal Exam Rectal Exam: NORMAL INSPECTION - Extremities Exam Extremities Exam: Full ROM, Normal Capillary Refill, Normal Inspection, Pedal Edema. absent: Joint Swelling - Back Exam Back Exam: NORMAL INSPECTION - Neurological Exam Neurological Exam: Alert, Awake, CN II-XII Intact, Oriented x3 - Psychiatric Exam Psychiatric exam: Normal Affect, Normal Mood - Skin Skin Exam: Dry, Intact, Rash, Warm Additional comments: bullous lesions Assessment and Plan - Assessment and Plan (Free Text) Assessment: sob due to chf[see abnormal echo] bullos pemphigoid htn Plan: continue current rx will follow with you
--- NOTE | 2017-06-09 09:48 | PQF GENQUE ---
Dr. Macario, Please clarify the stage of the chronic kidney disease: versus CKD ruled out Stage 1 Stage 2 (mild) Stage 3 (moderate) Stage 4 (severe) Stage 5 Other (please specify) Clinically unable to determine Unknown 06/08: progress note of the attending: hx. INGRAM 06/08: Renal consult: patient has been followed up by Dr. Fontana as outpatient and I am not sure if the patient has detail of any kidney problem at the present. We will try to get further information from Dr. Fontana. The patient also has azotemia, probably related to the congestive heart failure and she has been receiving treatment. BUN:29->25-.32 Creatinine:0.7->0.7-.0.8 Est GFR (Af Amer/Non-Af Amer):.>60/>60----->60/>60---->60/>60 This form is a permanent part of the medical record Clarification of your documentation is requested to better reflect the severity of illness and intensity of treatment of your patient. Indicators present [] Specify: [] [] Specify: [] [] Specify: [] [] Specify: [] Location in the medical record that reflects the above clinical findings: [] Treatment Provided: [] PHYSICIAN'S RESPONSE no CKD Based on your medical judgment of the clinical indicators outlined above please clarify the following: [] Practitioner response [] If unable to determine, please check the box, sign and date. Present On Admission (POA) Indicator: [] Present at the time of admission [] Not present at the time of admission [] Clinically Undetermined In responding to this query, please exercise your independent professional judgment. The fact that a question is asked does not imply that any particular answer is desired or expected. Thank you for your clarification on this documentation. If you have any questions please call. * Thank you, Miroslava Zafar RN ext. #[phone] MTDD
--- NOTE | 2017-06-09 09:59 | PQF GENQUE ---
Dr. Macario, It is unclear whether the following diagnosis below was present on admission. DX 1: Acute respiratory failure with hypoxia sec to CHF exacerbation Clinically unable to determine Unknown H and P: dxs. include: Respiratory Acidosis ;Dyspnea possible due to CHF/ volume overload rule out PE, CTA pending CXR+ interstitial markings, chronic with pulm vascular congestion and small bilateral pleural effusions pH 7.21, pCO2 81 patient on bipap, saturating well, mentating well Echo pending repeat ABG in AM. continue bronchodilators PRN continue diuresis with LASIX 40 IV Q12 06/08: Atttending progress note: Acute respiratory failure with hypoxia sec to CHF exacerbation Status: Acute Pt was initially on Bipap, pt doing better after diuresis, will decrease to 3 liter NC Pulm consult This form is a permanent part of the medical record Clarification of your documentation is requested to better reflect the severity of illness and intensity of treatment of your patient. Indicators present [] Specify: [] [] Specify: [] [] Specify: [] [] Specify: [] Location in the medical record that reflects the above clinical findings: [] Treatment Provided: [] PHYSICIAN'S RESPONSE Acute Resp Failure with hypoxia sec to CHF exacerb :Present on admission Based on your medical judgment of the clinical indicators outlined above please clarify the following: [] Practitioner response [] If unable to determine, please check the box, sign and date. Present On Admission (POA) Indicator: [] Present at the time of admission [] Not present at the time of admission [] Clinically Undetermined In responding to this query, please exercise your independent professional judgment. The fact that a question is asked does not imply that any particular answer is desired or expected. Thank you for your clarification on this documentation. If you have any questions please call. * Thank you, Miroslava Zafar RN ext. #[phone] MTDD
--- NOTE | 2017-06-09 11:03 | CP.PCM.PN ---
Subjective - Date & Time of Evaluation Date of Evaluation: 06/09/17 Time of Evaluation: 11:00 - Subjective Subjective: Patient feeling much better No significant changes clinically Vital sign noted Nausea and no vomiting Objective - Vital Signs/Intake and Output Vital Signs (last 24 hours): Temp Pulse Resp BP Pulse Ox 97.1 F L 74 20 161/65 H 100 06/09/17 08:00 06/09/17 09:00 06/09/17 08:00 06/09/17 08:21 06/09/17 08:00 Intake and Output: 06/09/17 06/09/17 06:59 18:59 Intake Total 300 Output Total 1000 Balance -700 - Medications Medications: Current Medications Carvedilol (Coreg) 12.5 mg PO Q12 [facility] Last Admin: 06/09/17 08:18 Dose: 12.5 mg Dexamethasone (Decadron) 2 mg PO DAILY [facility] Last Admin: 06/09/17 08:19 Dose: 2 mg Enoxaparin Sodium (Lovenox) 40 mg SC DAILY [facility] PRN Reason: Protocol Last Admin: 06/09/17 08:22 Dose: 40 mg Famotidine (Pepcid) 20 mg PO BID [facility] Last Admin: 06/09/17 08:22 Dose: 20 mg Furosemide (Lasix) 40 mg IVP Q12 [facility] Last Admin: 06/09/17 08:21 Dose: 40 mg Doxycycline Hyclate 100 mg/ (Sodium Chloride) 100 mls @ 100 mls/hr IVPB Q12 [facility] PRN Reason: Protocol Last Admin: 06/09/17 09:53 Dose: 100 mls/hr Insulin Human Lispro (Humalog) 0 units SC ACHS [facility] PRN Reason: Protocol Last Admin: 06/09/17 08:19 Dose: 2 units Levalbuterol HCl (Xopenex) 1.25 mg INH RQ8 PRN PRN Reason: Shortness of Breath - Labs Labs: 06/09/17 05:30 06/09/17 05:30 PT 13.1 Seconds (9.8-13.1) D 06/09/17 05:30 INR 1.2 (0.9-1.2) 06/09/17 05:30 - Constitutional Appears: No Acute Distress - ENT Exam ENT Exam: Mucous Membranes Moist - Respiratory Exam Respiratory Exam: NORMAL BREATHING PATTERN. absent: Chest Wall Tenderness - Cardiovascular Exam Cardiovascular Exam: absent: JVD, Rubs - GI/Abdominal Exam GI & Abdominal Exam: Soft, Normal Bowel Sounds - Extremities Exam Extremities Exam: absent: Calf Tenderness - Neurological Exam Neurological Exam: Alert - Psychiatric Exam Psychiatric exam: Normal Affect - Skin Skin Exam: absent: Cyanosis Assessment and Plan - Assessment and Plan (Free Text) Assessment: Patient has multiple problems related to skin manifestation with a previous skin biopsy receiving steroid treatment. Urinalysis showed significant proteinuria to explain the leg edema for the leg edema is not related to the kidney , perhaps to the cardiac condition as described. CHF history. Mild prerenal azotemia but THE STEROID AND A CARDIAC CONDITION.
--- NOTE | 2017-06-09 11:59 | CP.PCM.PN ---
Subjective - Date & Time of Evaluation Date of Evaluation: 06/09/17 Time of Evaluation: 10:00 - Subjective Subjective: pt claims her breathing is easier today edema sl less continue present Tx Objective - Vital Signs/Intake and Output Vital Signs (last 24 hours): Temp Pulse Resp BP Pulse Ox 97.1 F L 74 20 161/65 H 100 06/09/17 08:00 06/09/17 09:00 06/09/17 08:00 06/09/17 08:21 06/09/17 08:00 Intake and Output: 06/09/17 06/09/17 06:59 18:59 Intake Total 300 Output Total 1000 Balance -700 - Medications Medications: Current Medications Carvedilol (Coreg) 12.5 mg PO Q12 [facility] Last Admin: 06/09/17 08:18 Dose: 12.5 mg Dexamethasone (Decadron) 2 mg PO DAILY [facility] Last Admin: 06/09/17 08:19 Dose: 2 mg Enoxaparin Sodium (Lovenox) 40 mg SC DAILY [facility] PRN Reason: Protocol Last Admin: 06/09/17 08:22 Dose: 40 mg Famotidine (Pepcid) 20 mg PO BID [facility] Last Admin: 06/09/17 08:22 Dose: 20 mg Furosemide (Lasix) 40 mg IVP Q12 [facility] Last Admin: 06/09/17 08:21 Dose: 40 mg Doxycycline Hyclate 100 mg/ (Sodium Chloride) 100 mls @ 100 mls/hr IVPB Q12 [facility] PRN Reason: Protocol Last Admin: 06/09/17 09:53 Dose: 100 mls/hr Insulin Human Lispro (Humalog) 0 units SC ACHS [facility] PRN Reason: Protocol Last Admin: 06/09/17 08:19 Dose: 2 units Levalbuterol HCl (Xopenex) 1.25 mg INH RQ8 PRN PRN Reason: Shortness of Breath Silver Sulfadiazine (Silvadene 1% 50 Gm) 1 applic TOP BID [facility] Triamcinolone Acetonide (Kenalog 0.025% Cream) 1 applic TP BID [facility] - Labs Labs: 06/09/17 05:30 06/09/17 05:30 PT 13.1 Seconds (9.8-13.1) D 06/09/17 05:30 INR 1.2 (0.9-1.2) 06/09/17 05:30 Assessment and Plan (1) Acute left systolic heart failure Status: Acute
--- NOTE | 2017-06-09 14:10 | CP.PCM.PN ---
Subjective - Date & Time of Evaluation Date of Evaluation: 06/09/17 Time of Evaluation: 13:30 - Subjective Subjective: SOB better- pt was on Bipap last night however now on NC leg edema better diuresing well noted episodes of tachy on Tele monitor denies CP Daughter More was at bedside - she is the surrogate decision maker . Pt is Full Code Objective - Vital Signs/Intake and Output Vital Signs (last 24 hours): Temp Pulse Resp BP Pulse Ox 98.4 F 86 18 152/69 H 100 06/09/17 12:00 06/09/17 12:00 06/09/17 12:00 06/09/17 12:00 06/09/17 12:00 Intake and Output: 06/09/17 06/09/17 06:59 18:59 Intake Total 300 Output Total 1000 Balance -700 - Medications Medications: Current Medications Carvedilol (Coreg) 12.5 mg PO Q12 [facility] Last Admin: 06/09/17 08:18 Dose: 12.5 mg Dexamethasone (Decadron) 2 mg PO DAILY [facility] Last Admin: 06/09/17 08:19 Dose: 2 mg Enoxaparin Sodium (Lovenox) 40 mg SC DAILY [facility] PRN Reason: Protocol Last Admin: 06/09/17 08:22 Dose: 40 mg Famotidine (Pepcid) 20 mg PO BID [facility] Last Admin: 06/09/17 08:22 Dose: 20 mg Furosemide (Lasix) 40 mg IVP Q12 [facility] Last Admin: 06/09/17 08:21 Dose: 40 mg Doxycycline Hyclate 100 mg/ (Sodium Chloride) 100 mls @ 100 mls/hr IVPB Q12 [facility] PRN Reason: Protocol Last Admin: 06/09/17 09:53 Dose: 100 mls/hr Insulin Human Lispro (Humalog) 0 units SC ACHS [facility] PRN Reason: Protocol Last Admin: 06/09/17 12:32 Dose: 2 units Levalbuterol HCl (Xopenex) 1.25 mg INH RQ8 PRN PRN Reason: Shortness of Breath Silver Sulfadiazine (Silvadene 1% 50 Gm) 1 applic TOP BID [facility] Triamcinolone Acetonide (Kenalog 0.025% Cream) 1 applic TP BID [facility] - Labs Labs: 06/09/17 05:30 06/09/17 05:30 PT 13.1 Seconds (9.8-13.1) D 06/09/17 05:30 INR 1.2 (0.9-1.2) 06/09/17 05:30 - Constitutional Appears: Chronically Ill - Head Exam Head Exam: ATRAUMATIC, NORMAL INSPECTION, NORMOCEPHALIC - Eye Exam Eye Exam: EOMI, Normal appearance Pupil Exam: NORMAL ACCOMODATION - ENT Exam ENT Exam: Mucous Membranes Dry, Normal External Ear Exam Additional comments: no thrush - Neck Exam Neck Exam: Full ROM. absent: Meningismus - Respiratory Exam Respiratory Exam: Rales, Rhonchi. absent: Wheezes Additional comments: basilar rales - Cardiovascular Exam Cardiovascular Exam: Tachycardia, REGULAR RHYTHM, +S1, +S2 - GI/Abdominal Exam GI & Abdominal Exam: Soft, Normal Bowel Sounds. absent: Tenderness - Extremities Exam Extremities Exam: Normal Capillary Refill, ++ Pedal Edema. absent: Calf Tenderness - Back Exam Back Exam: Full ROM. absent: CVA tenderness (L), CVA tenderness (R) - Neurological Exam Neurological Exam: Alert, Awake, Oriented x3 Neuro motor strength exam: Left Upper Extremity: 5, Right Upper Extremity: 5, Left Lower Extremity: 5, Right Lower Extremity: 5 - Psychiatric Exam Psychiatric exam: Normal Affect, Normal Mood - Skin Skin Exam: bullous lesions mostly on trunk and upper ext Assessment and Plan (1) Acute respiratory failure with hypoxia Status: Acute (2) Acute exacerbation of CHF (congestive heart failure) Status: Acute (3) Leukocytosis Status: Acute (4) Bullous lesion Status: Chronic (5) Anemia Status: Chronic (6) HTN (hypertension) Status: Chronic (7) SIRS (systemic inflammatory response syndrome) Status: Acute (8) DVT prophylaxis Status: Acute - Assessment and Plan (Free Text) Assessment: 86 y/o lady with hx of HTN, HLD, DM, and Bullous Pemphigus , was brought in bec of SOB and bilat leg edema . ProBNP elevated. CXR shows Pulm Vascular congestion. She was noted to be in resp failure on admission and placed on Bipap. She was started on IV Lasix At present on O2 per NC at 3 liters . (1) Acute respiratory failure with hypoxia sec to CHF exacerbation Status: Acute Pt was initially on Bipap, pt doing better after diuresis, decreased to 3 liter NC Pulmonary and Cardio consulted cont diuresis CT of chest ; neg PE (2) Acute exacerbation of CHF systolic and diastolic dysfunction Status: Acute ECHO: mod syst dysfxn, apical and septal hypokinesia, mild to mod Pulm HTN, mod MR elevated proBNP cont IV Lasix restarted Coreg no ED inh as there was a question of poss drug eruption with Quinapril as outpt Got pt's med list from [facility] as pt cannot remember meds she takes, I also called Dr Victor's office for more info Cardio consulted (3) Leukocytosis Status: Acute prob sec to steroids , normalized without abx (4) Bullous pemphigus Status: Chronic skin biopsy done by [employer] - I called Dr Cohen's office and staff member said dx if Bullous pemphigus cont Decadron Dr East rec to start Doxy IV for the bullous lesions cont Silvadene and Fluocinolone ointment (5) Anemia Status: Chronic will monitor check iron, B12, Fol (6) HTN (hypertension) Status: Chronic reviewed home meds obtained from [facility] - restart Coreg 25 mg bid - cont IV lasix - d/c LIsinopril ( there was a ? of drug eruption when pt took Quinapril/HCTZ accdg to Dr Victor's office progress note) (7) SIRS (systemic inflammatory response syndrome) Status: Acute No signs of infection however pt came with SIRS sxs. 8. Sinus Tachycardia episodes of tachy on Tele , noted some PVCs CT of chest : no PE TSH normal pt was on Coreg 25 ng bid at home- will cont Cardio consulted (8) DVT prophylaxis Status: Acute Lovenox
[2017-06-09] MEDS: Silver Sulfadiazine 1% CREAM (50 gm) TOP SCH (16:34)
[2017-06-10 06:30] LABS: HEMOGLOBIN 9.5 g/dL (12.0-16.0); MEAN CELL VOLUME 88.5 fl (81.0-99.0); MEAN CORPUSCULAR HEMOGLOBIN 28.4 pg (27.0-31.0); MEAN CORPUSCULAR HGB CONC 32.1 g/dL (33.0-37.0); RBC 3.34 Mil/uL (3.80-5.20); WHITE BLOOD COUNT 8.6 K/uL (4.8-10.8)
[2017-06-10 06:58] LABS: BLOOD UREA NITROGEN 30 mg/dl (7-17); CALCIUM 8.9 mg/dL (8.4-10.2); GFR AFRICAN-AMERICAN > 60; GFR NON-AFRICAN AMERICAN 59
[2017-06-10 07:07] LABS: FERRITIN 81.9 ng/Ml (11.1-264.0)
[2017-06-10 08:31] VITALS: PULSE 76
[2017-06-10] MEDS: Enoxaparin 40 mg Syringe SC SCH (08:44)
[2017-06-10] MEDS: Insulin Lispro (humaLOG) 100 Units/ml Inj SC SCH ×3 (08:45→17:12)
[2017-06-10] MEDS: Silver Sulfadiazine 1% CREAM (50 gm) TOP SCH ×2 (08:47→17:12)
[2017-06-10 09:49] LABS: IRON 29 ug/dL (37-170)
[2017-06-10 09:58] LABS: TOTAL IRON BINDING CAPACITY 192 ug/dL (250-450)
[2017-06-10 10:02] LABS: % IRON SATURATION 15 % (20-55)
--- NOTE | 2017-06-10 11:47 | CP.PCM.PN ---
Subjective - Date & Time of Evaluation Date of Evaluation: 06/10/17 Time of Evaluation: 11:00 - Subjective Subjective: apparently the pt had an episode of Atrial fibrillation yesterday pt is in NSR at present breathing easily less edema Objective - Vital Signs/Intake and Output Vital Signs (last 24 hours): Temp Pulse Resp BP Pulse Ox 98 F 76 18 136/69 99 06/10/17 08:31 06/10/17 08:44 06/10/17 08:31 06/10/17 08:45 06/10/17 08:31 Intake and Output: 06/10/17 06/10/17 06:59 18:59 Output Total 1850 Balance -1850 - Medications Medications: Current Medications Carvedilol (Coreg) 25 mg PO Q12 [facility] Last Admin: 06/10/17 08:44 Dose: 25 mg Dexamethasone (Decadron) 2 mg PO DAILY [facility] Last Admin: 06/10/17 08:45 Dose: 2 mg Enoxaparin Sodium (Lovenox) 40 mg SC DAILY [facility] PRN Reason: Protocol Last Admin: 06/10/17 08:44 Dose: 40 mg Famotidine (Pepcid) 20 mg PO BID [facility] Last Admin: 06/10/17 08:44 Dose: 20 mg Furosemide (Lasix) 40 mg IVP Q12 [facility] Last Admin: 06/10/17 08:45 Dose: 40 mg Doxycycline Hyclate 100 mg/ (Sodium Chloride) 100 mls @ 100 mls/hr IVPB Q12 [facility] PRN Reason: Protocol Last Admin: 06/10/17 09:26 Dose: 100 mls/hr Insulin Human Lispro (Humalog) 0 units SC ACHS [facility] PRN Reason: Protocol Last Admin: 06/10/17 08:45 Dose: Not Given Levalbuterol HCl (Xopenex) 1.25 mg INH RQ8 PRN PRN Reason: Shortness of Breath Silver Sulfadiazine (Silvadene 1% 50 Gm) 1 applic TOP BID [facility] Last Admin: 06/10/17 08:47 Dose: 1 applic Triamcinolone Acetonide (Kenalog 0.025% Cream) 1 applic TP BID [facility] Last Admin: 06/10/17 08:46 Dose: 1 applic - Labs Labs: 06/10/17 04:35 06/10/17 04:35 PT 13.1 Seconds (9.8-13.1) D 06/09/17 05:30 INR 1.2 (0.9-1.2) 06/09/17 05:30 Assessment and Plan (1) Acute left systolic heart failure Status: Acute
[2017-06-10] MEDS ORDERED: Potassium Chloride 20 mEq/15 ml LIQ UD PO ONE (11:54)
--- NOTE | 2017-06-10 11:57 | CP.PCM.PN ---
Objective - Vital Signs/Intake and Output Vital Signs (last 24 hours): Temp Pulse Resp BP Pulse Ox 98 F 76 18 136/69 99 06/10/17 08:31 06/10/17 08:44 06/10/17 08:31 06/10/17 08:45 06/10/17 08:31 Intake and Output: 06/10/17 06/10/17 06:59 18:59 Output Total 1850 Balance -1850 - Medications Medications: Current Medications Carvedilol (Coreg) 25 mg PO Q12 [facility] Last Admin: 06/10/17 08:44 Dose: 25 mg Dexamethasone (Decadron) 2 mg PO DAILY [facility] Last Admin: 06/10/17 08:45 Dose: 2 mg Enoxaparin Sodium (Lovenox) 40 mg SC DAILY [facility] PRN Reason: Protocol Last Admin: 06/10/17 08:44 Dose: 40 mg Famotidine (Pepcid) 20 mg PO BID [facility] Last Admin: 06/10/17 08:44 Dose: 20 mg Furosemide (Lasix) 40 mg IVP Q12 [facility] Last Admin: 06/10/17 08:45 Dose: 40 mg Doxycycline Hyclate 100 mg/ (Sodium Chloride) 100 mls @ 100 mls/hr IVPB Q12 [facility] PRN Reason: Protocol Last Admin: 06/10/17 09:26 Dose: 100 mls/hr Iron Sucrose 100 mg/ Sodium (Chloride) 105 mls @ 105 mls/hr IVPB DAILY [facility] Stop: 06/13/17 12:01 Insulin Human Lispro (Humalog) 0 units SC ACHS [facility] PRN Reason: Protocol Last Admin: 06/10/17 08:45 Dose: Not Given Levalbuterol HCl (Xopenex) 1.25 mg INH RQ8 PRN PRN Reason: Shortness of Breath Potassium Chloride (Potassium Chloride Oral Soln) 20 meq PO ONCE ONE Stop: 06/10/17 11:55 Silver Sulfadiazine (Silvadene 1% 50 Gm) 1 applic TOP BID [facility] Last Admin: 06/10/17 08:47 Dose: 1 applic Triamcinolone Acetonide (Kenalog 0.025% Cream) 1 applic TP BID [facility] Last Admin: 06/10/17 08:46 Dose: 1 applic - Labs Labs: 06/10/17 04:35 06/10/17 04:35 PT 13.1 Seconds (9.8-13.1) D 06/09/17 05:30 INR 1.2 (0.9-1.2) 06/09/17 05:30 Assessment and Plan - Assessment and Plan (Free Text) Assessment: 86 y/o lady with hx of HTN, HLD, DM, and Bullous Pemphigus , was brought in bec of SOB and bilat leg edema . ProBNP elevated. CXR shows Pulm Vascular congestion. She was noted to be in resp failure on admission and placed on Bipap. She was started on IV Lasix At present on O2 per NC at 3 liters . (1) Acute respiratory failure with hypoxia sec to CHF exacerbation Status: Acute Pt was initially on Bipap, pt doing better after diuresis, decreased to 3 liter NC Pulmonary and Cardio consulted cont diuresis CT of chest ; neg PE (2) Acute exacerbation of CHF systolic and diastolic dysfunction Status: Acute ECHO: mod syst dysfxn, apical and septal hypokinesia, mild to mod Pulm HTN, mod MR elevated proBNP cont IV Lasix restarted Coreg no ED inh as there was a question of poss drug eruption with Quinapril as outpt Got pt's med list from [facility] as pt cannot remember meds she takes, I also called Dr Victor's office for more info Cardio consulted (3) Leukocytosis Status: Acute prob sec to steroids , normalized without abx (4) Bullous pemphigus Status: Chronic skin biopsy done by Analog [employer]c Design Engineer - I called Dr Cohen's office and staff member said dx if Bullous pemphigus cont Decadron Dr [facility] rec to start Doxy IV for the bullous lesions cont Silvadene and Fluocinolone ointment (5) Anemia Status: Chronic will monitor check iron, B12, Fol (6) HTN (hypertension) Status: Chronic reviewed home meds obtained from [facility] - restart Coreg 25 mg bid - cont IV lasix - d/c LIsinopril ( there was a ? of drug eruption when pt took Quinapril/HCTZ accdg to Dr Victor's office progress note) (7) SIRS (systemic inflammatory response syndrome) Status: Acute No signs of infection however pt came with SIRS sxs. 8. Sinus Tachycardia episodes of tachy on Tele , noted some PVCs CT of chest : no PE TSH normal pt was on Coreg 25 ng bid at home- will cont Cardio consulted (8) DVT prophylaxis Status: Acute Lovenox
--- NOTE | 2017-06-10 12:29 | CP.PCM.DIS ---
Provider - Provider Date of Admission: 06/07/17 15:22 Attending physician: Jennifer Brandt DO Primary care physician: Dr. Walker Consults: cardiology consult Pulmonary consult nephrology consult Time Spent in preparation of Discharge (in minutes): 15 Hospital Course - Lab Results Lab Results: Micro Results 06/07/17 13:48 Blood-Venous Blood Culture - Preliminary NO GROWTH AFTER 48 HOURS 06/07/17 15:50 Urine,Charles Urine Culture - Final No Growth (<1,000 CFU/ML) Most Recent Lab Values WBC 8.6 K/uL (4.8-10.8) 06/10/17 04:35 RBC 3.34 Mil/uL (3.80-5.20) L 06/10/17 04:35 Hgb 9.5 g/dL (12.0-16.0) L 06/10/17 04:35 Hct 29.6 % (34.0-47.0) L 06/10/17 04:35 MCV 88.5 fl (81.0-99.0) 06/10/17 04:35 MCH 28.4 pg (27.0-31.0) 06/10/17 04:35 MCHC 32.1 g/dL (33.0-37.0) L 06/10/17 04:35 RDW 14.0 % (11.5-14.5) 06/10/17 04:35 Plt Count 302 K/uL (130-400) 06/10/17 04:35 MPV 7.7 fl (7.2-11.7) 06/08/17 04:20 Neut % (Auto) 70.5 % (50.0-75.0) 06/08/17 04:20 Lymph % (Auto) 21.2 % (20.0-40.0) 06/08/17 04:20 [place] % (Auto) 8.2 % (0.0-10.0) 06/08/17 04:20 Eos % (Auto) 0.0 % (0.0-4.0) 06/08/17 04:20 Baso % (Auto) 0.1 % (0.0-2.0) 06/08/17 04:20 Neut # 4.1 K/uL (1.8-7.0) 06/08/17 04:20 Lymph # 1.2 K/uL (1.0-4.3) 06/08/17 04:20 [place] # 0.5 K/uL (0.0-0.8) 06/08/17 04:20 Eos # 0.0 K/uL (0.0-0.7) 06/08/17 04:20 Baso # 0.0 K/uL (0.0-0.2) 06/08/17 04:20 ESR 46 mm/hr (0-30) H 06/09/17 05:30 PT 13.1 Seconds (9.8-13.1) D 06/09/17 05:30 INR 1.2 (0.9-1.2) 06/09/17 05:30 D-Dimer, Quantitative 574 ng/mlDDU (0-230) H 06/07/17 13:48 pO2 26 mm/Hg (30-55) L 06/07/17 12:41 VBG pH 7.21 (7.32-7.43) L 06/07/17 12:41 VBG pCO2 81 mmHg (40-60) H* 06/07/17 12:41 VBG HCO3 24.8 mmol/L 06/07/17 12:41 VBG Total CO2 34.9 mmol/L (22-28) H 06/07/17 12:41 VBG O2 Sat (Calc) 44.3 % (40-65) 06/07/17 12:41 VBG Base Excess 2.0 mmol/L (0.0-2.0) 06/07/17 12:41 VBG Potassium 3.9 mmol/L (3.6-5.2) 06/07/17 12:41 Sodium 136.0 mmol/L (132-148) 06/07/17 12:41 Chloride 100.0 mmol/L (98-107) 06/07/17 12:41 Glucose 195 mg/dL (65-105) H 06/07/17 12:41 Lactate 3.5 mmol/L (0.7-2.1) H 06/07/17 12:41 FiO2 21.0 % 06/07/17 12:41 Crit Value Called To Duncan fonseca 06/07/17 12:41 Crit Value Called By Kareem 06/07/17 12:41 Crit Value Read Back Y 06/07/17 12:41 Blood Gas Notified Time 1245 06/07/17 12:41 Sodium 141 mmol/l (132-148) 06/10/17 04:35 Potassium 3.3 MMOL/L (3.6-5.0) L 06/10/17 04:35 Chloride 95 mmol/L (98-107) L 06/10/17 04:35 Carbon Dioxide 39 mmol/L (22-30) H 06/10/17 04:35 Anion Gap 10 (10-20) 06/10/17 04:35 BUN 30 mg/dl (7-17) H 06/10/17 04:35 Creatinine 0.9 mg/dl (0.7-1.2) 06/10/17 04:35 Est GFR ( Amer) > 60 06/10/17 04:35 Est GFR (Non-Af Amer) 59 06/10/17 04:35 POC Glucose (mg/dL) 152 mg/dL (65-110) H 06/10/17 11:17 Random Glucose 115 mg/dL (65-105) H 06/10/17 04:35 Hemoglobin A1c 6.1 % (4.2-6.5) 06/10/17 04:35 Lactic Acid 1.2 MMOL/L (0.7-2.1) 06/08/17 11:42 Calcium 8.9 mg/dL (8.4-10.2) 06/10/17 04:35 Iron 29 ug/dL (37-170) L 06/10/17 08:49 TIBC 192 ug/dL (250-450) L 06/10/17 08:49 % Saturation 15 % (20-55) L 06/10/17 08:49 Ferritin 81.9 ng/Ml (11.1-264.0) 06/10/17 04:35 Total Bilirubin 0.6 mg/dl (0.2-1.3) 06/07/17 12:25 AST 127 U/L (14-36) H 06/07/17 12:25 ALT 53 U/L (9-52) H 06/07/17 12:25 Alkaline Phosphatase 101 U/L (38-126) 06/07/17 12:25 Troponin I 0.0750 ng/mL (0.00-0.120) 06/07/17 12:25 NT-Pro-B Natriuret Pep 53082 pg/ml (0-900) H 06/09/17 05:30 Total Protein 7.3 G/DL (6.3-8.2) 06/07/17 12:25 Albumin 3.6 g/dL (3.5-5.0) 06/07/17 12:25 Globulin 3.7 gm/dL (2.2-3.9) 06/07/17 12:25 Albumin/Globulin Ratio 1.0 (1.0-2.1) 06/07/17 12:25 Triglycerides 138 mg/DL (0-149) 06/09/17 05:30 Cholesterol 159 mg/dL (0-199) 06/09/17 05:30 LDL Cholesterol Direct 104 mg/dL (0-129) 06/09/17 05:30 HDL Cholesterol 22 MG/DL (30-70) L 06/09/17 05:30 Vitamin B12 299 pg/mL (239-931) 06/10/17 04:35 Procalcitonin < 0.05 NG/ML (0.19-0.49) L 06/07/17 15:50 TSH 3rd Generation 2.77 mIU/ML (0.46-4.68) 06/09/17 05:30 Venous Blood Potassium 3.9 mmol/L (3.6-5.2) 06/07/17 12:41 Urine Color Yellow (YELLOW) 06/07/17 15:50 Urine Appearance Clear (CLEAR) 06/07/17 15:50 Urine pH 6.0 (5.0-8.0) 06/07/17 15:50 Ur Specific Roosevelt 1.010 (1.003-1.030) 06/07/17 15:50 Urine Protein Negative mg/dL (NEGATIVE) 06/07/17 15:50 Urine Glucose (UA) Neg mg/dL (Normal) 06/07/17 15:50 Urine Ketones Negative mg/dL (NEGATIVE) 06/07/17 15:50 Urine Blood Negative (NEGATIVE) 06/07/17 15:50 Urine Nitrate Negative (NEGATIVE) 06/07/17 15:50 Urine Bilirubin Negative (NEGATIVE) 06/07/17 15:50 Urine Urobilinogen 0.2-1.0 mg/dL (0.2-1.0) 06/07/17 15:50 Ur Leukocyte Esterase Neg John/uL (Negative) 06/07/17 15:50 - Hospital Course Hospital Course: 86 y/o lady with hx of HTN, HLD, DM, and Bullous Pemphigus , was brought in because of SOB and bilateral leg edema .ProBNP was found to be elevated. CXR shows Pulm Vascular congestion. She was noted to be in resp failure with hypoxemia on admission and placed on Bipap. She was started on IV Lasix Pulmonary , cardiology and nephrology were consulted patient clinically improved but appears very weak During this admission she had 1 episode of paroxysmal Afib that converted back to SR .Her Coreg was restarted. SAs per cardiology since this is 1 epiosde anticoagulation is not needed at this time. Will discharge patient to TCU for continuation n of therapy and PT At present on O2 per NC at 3 liters . 1.Acute respiratory failure with hypoxia sec to CHF exacerbation Pt was initially on Bipap and started lasix, ProBNP was elevated doing better after diuresis currently on 3 liter O2 via NC Pulmonary and Cardio consulted cont diuresis CT of chest ; neg PE 2. Acute exacerbation of CHF systolic and diastolic dysfunction ECHO: mod syst dysfxn, apical and septal hypokinesia, mild to mod Pulm HTN, mod MR elevated proBNP cont Lasix restarted Coreg no ACEI as there was a question of possible drug eruption with Quinapril as outpatient Cardio consulted 3. Leukocytosis prob sec to steroids , normalized without abx 4. Bullous pemphigus Chronic skin biopsy done by [employer]orer [employer] - I called Dr Cohen's office and staff member said dx if Bullous pemphigus cont Decadron Dr [place] rec to start Doxy IV for the bullous lesions cont Silvadene and Fluocinolone ointment 5.Anemia Chronic iron stores depleted.Will give Venofer IV x 3 days 6. HTN (hypertension) Chronic restarted home meds Coreg 25 mg bid cont lasix but switch to po d/c LIsinopril ( there was a ? of drug eruption when pt took Quinapril/HCTZ accdg to Dr Victor's office progress note) 7. SIRS (systemic inflammatory response syndrome) Acute No signs of infection however pt came with SIRS sxs. 8. Parozysmal afib at present back in SR continue Coreg cardio consulted no anticoagulation for now as per cardio CT of chest : no PE TSH normal 9. Hypokalemia replace with KCl Discharge Exam - Head Exam Head Exam: ATRAUMATIC, NORMAL INSPECTION, NORMOCEPHALIC - Eye Exam Eye Exam: EOMI, PERRL Pupil Exam: NORMAL ACCOMODATION - ENT Exam ENT Exam: Normal Exam - Neck Exam Neck exam: Full Rom, Normal Inspection - Respiratory Exam Respiratory Exam: Clear to PA & Lateral, NORMAL BREATHING PATTERN. absent: Rales, Rhonchi, Wheezes - Cardiovascular Exam Cardiovascular Exam: REGULAR RHYTHM, RRR, +S1, +S2. absent: JVD - GI/Abdominal Exam GI & Abdominal Exam: Normal Bowel Sounds, Soft. absent: Distended, Guarding, Rebound, Tenderness - Rectal Exam Rectal Exam: Deferred - Extremities Exam Extremities exam: normal capillary refill, normal inspection, pedal pulses present - Back Exam Back exam: NORMAL INSPECTION - Neurological Exam Neurological exam: Alert, CN II-XII Intact, Oriented x3, Reflexes Normal - Psychiatric Exam Psychiatric exam: Normal Affect, Normal Mood - Skin Skin Exam: Dry, Pallor, Warm Additional comments: multiple skin lesions secondary to bullous phemphigoid of different stages of healing seen on her chest , back, arms Discharge Plan - Discharge Medications Prescriptions: Doxycycline Hyclate [Doxycycline Hyclate [facility]] 100 mg IV Q12 #14 vial Iron Sucrose Complex [Venofer] 100 mg IV DAILY #2 ml - Follow Up Plan Condition: STABLE Disposition: HOME/ ROUTINE Patient education suggested?: Yes Instructions: Heart Failure (DC) Referrals: Hood Fontana MD [Family Provider] -
--- NOTE | 2017-06-10 13:02 | CP.PCM.PN ---
Subjective - Date & Time of Evaluation Date of Evaluation: 06/10/17 Time of Evaluation: 13:03 - Subjective Subjective: FEELS BETTER SOB IMPROVED Objective - Vital Signs/Intake and Output Vital Signs (last 24 hours): Temp Pulse Resp BP Pulse Ox 98 F 76 18 136/69 99 06/10/17 08:31 06/10/17 08:44 06/10/17 08:31 06/10/17 08:45 06/10/17 08:31 Intake and Output: 06/10/17 06/10/17 06:59 18:59 Output Total 1850 Balance -1850 - Medications Medications: Current Medications Carvedilol (Coreg) 25 mg PO Q12 [facility] Last Admin: 06/10/17 08:44 Dose: 25 mg Dexamethasone (Decadron) 2 mg PO DAILY [facility] Last Admin: 06/10/17 08:45 Dose: 2 mg Enoxaparin Sodium (Lovenox) 40 mg SC DAILY [facility] PRN Reason: Protocol Last Admin: 06/10/17 08:44 Dose: 40 mg Famotidine (Pepcid) 20 mg PO BID [facility] Last Admin: 06/10/17 08:44 Dose: 20 mg Furosemide (Lasix) 40 mg IVP Q12 [facility] Last Admin: 06/10/17 08:45 Dose: 40 mg Doxycycline Hyclate 100 mg/ (Sodium Chloride) 100 mls @ 100 mls/hr IVPB Q12 [facility] PRN Reason: Protocol Last Admin: 06/10/17 09:26 Dose: 100 mls/hr Iron Sucrose 100 mg/ Sodium (Chloride) 105 mls @ 105 mls/hr IVPB DAILY [facility] Stop: 06/13/17 12:01 Insulin Human Lispro (Humalog) 0 units SC ACHS [facility] PRN Reason: Protocol Last Admin: 06/10/17 12:39 Dose: 2 units Levalbuterol HCl (Xopenex) 1.25 mg INH RQ8 PRN PRN Reason: Shortness of Breath Silver Sulfadiazine (Silvadene 1% 50 Gm) 1 applic TOP BID [facility] Last Admin: 06/10/17 08:47 Dose: 1 applic Triamcinolone Acetonide (Kenalog 0.025% Cream) 1 applic TP BID [facility] Last Admin: 06/10/17 08:46 Dose: 1 applic - Labs Labs: 06/10/17 04:35 06/10/17 04:35 PT 13.1 Seconds (9.8-13.1) D 06/09/17 05:30 INR 1.2 (0.9-1.2) 06/09/17 05:30 - Constitutional Appears: No Acute Distress - Head Exam Head Exam: ATRAUMATIC, NORMAL INSPECTION, NORMOCEPHALIC - Eye Exam Eye Exam: EOMI, Normal appearance, PERRL Pupil Exam: NORMAL ACCOMODATION, PERRL - ENT Exam ENT Exam: Mucous Membranes Moist, Normal Exam - Neck Exam Neck Exam: Full ROM, Normal Inspection. absent: Lymphadenopathy - Respiratory Exam Respiratory Exam: Clear to Ausculation Bilateral, NORMAL BREATHING PATTERN - Cardiovascular Exam Cardiovascular Exam: REGULAR RHYTHM, +S1, +S2. absent: Murmur - GI/Abdominal Exam GI & Abdominal Exam: Soft, Normal Bowel Sounds. absent: Tenderness - Rectal Exam Rectal Exam: NORMAL INSPECTION - Extremities Exam Extremities Exam: Full ROM, Normal Capillary Refill, Normal Inspection. absent : Joint Swelling, Pedal Edema - Back Exam Back Exam: NORMAL INSPECTION - Neurological Exam Neurological Exam: Alert, Awake, CN II-XII Intact, Normal Gait, Oriented x3 - Psychiatric Exam Psychiatric exam: Normal Affect, Normal Mood - Skin Skin Exam: Dry, Intact, Normal Color, Warm Assessment and Plan - Assessment and Plan (Free Text) Assessment: CHF BULLOUS PEMPHIGOID Plan: OK TO TRANSFER TO TCU
[2017-06-10 16:20] VITALS: BP 119/74; RESP 14; TEMP 97.8; O2SAT 99
--- NOTE | 2017-06-10 18:09 | CARD ---
APPROVED REPORT EKG Measurement Heart [id number] <Conclusion> Atrial fibrillation with rapid ventricular response Septal infarct, age undetermined ST & T wave abnormality, consider anterolateral ischemia Abnormal ECG
[2017-06-10 21:36] LABS: FOLATE 12.8 ng/mL
== END 2017-06-10 18:36 | DRG 291 ==
LOC: H.ER 11:44 → H.ERHOLD 15:22 → H.TEL 18:01
PROVIDERS: ADMIT Student in an Organized Health Care Education/Training Program; ATTEND Student in an Organized Health Care Education/Training Program
PROC: 5A09457 Assistance with Respiratory Ventilation, 24-96 Consecutive Hours, Continuous Positive Airway Pressure (ICD-10-PCS; principal; 2017-06-07)
DX: I11.0 Hypertensive heart disease with heart failure (principal); J96.01 Acute respiratory failure with hypoxia; I48.0 Paroxysmal atrial fibrillation; R65.10 Systemic inflammatory response syndrome (SIRS) of non-infectious origin without acute organ dysfunction; E11.65 Type 2 diabetes mellitus with hyperglycemia; D64.9 Anemia, unspecified; L12.0 Bullous pemphigoid; I50.41 Acute combined systolic (congestive) and diastolic (congestive) heart failure; M06.9 Rheumatoid arthritis, unspecified; Z96.653 Presence of artificial knee joint, bilateral; E87.6 Hypokalemia; Z88.0 Allergy status to penicillin; R79.1 Abnormal coagulation profile; D72.829 Elevated white blood cell count, unspecified; T38.0X5A Adverse effect of glucocorticoids and synthetic analogues, initial encounter; R00.0 Tachycardia, unspecified; E78.5 Hyperlipidemia, unspecified; R79.89 Other specified abnormal findings of blood chemistry; R74.0 Nonspecific elevation of levels of transaminase and lactic acid dehydrogenase [LDH]

== ENCOUNTER 2017-06-10 16:03 | Inpatient (IN) | payer OTHER, MEDICARE ==
[2017-06-10 18:29] VITALS: BMI 24.2
[2017-06-10] MEDS ORDERED: Levalbuterol 1.25 MG/3 ML Inhal Soln UD INH PRN (18:56)
[2017-06-10 19:54] VITALS: RESP 20
[2017-06-10] MEDS ORDERED: DOXYCYCLINE HYCLATE 100 MG IV SCH (21:00)
[2017-06-11] MEDS ORDERED: Patient's Own Med (Iron Sucrose Complex [Venofer] 100 MG) IV SCH (09:00)
[2017-06-11] MEDS: Enoxaparin 40 mg Syringe SC SCH (09:09)
[2017-06-11] MEDS: Pravastatin Sodium 40 MG TAB PO SCH (09:11)
[2017-06-11] MEDS: Silver Sulfadiazine 1% CREAM (50 gm) TOP SCH ×2 (09:12→17:14)
--- NOTE | 2017-06-11 19:01 | CP.PCM.HP ---
History of Present Illness - History of Present Illness History of Present Illness: 86 y/o lady with hx of HTN, HLD, DM, and Bullous Pemphigus , was brought in because of SOB and bilateral leg edema. In the ED, her ProBNP was found to be elevated. CXR showed Pulm Vascular congestion. She was noted to be in resp failure with hypoxemia on admission and placed on Bipap. She was started on IV Lasix at that time. Pulmonary , cardiology and nephrology were consulted During this admission she had 1 episode of paroxysmal Afib that converted back to SR .Her Coreg was restarted. SAs per cardiology since this is 1 episode anticoagulation is not needed at this time. Patient clinically improved but still very weak- assessed by physical therapy. The patient was admitted to TCU for continuation of therapies to regain her strength. At present on O2 per NC at 3 liters . Patient denies cp/sob/f/c/n/v/d. Present on Admission - Present on Admission Any Indicators Present on Admission: No Review of Systems - Review of Systems Review of Systems: A 12 point ROS was conducted and found to be negative other than what was mentioned in the HPI. 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 - MUSCULOSKELETAL/RHEUMATOLOGICAL Hx Musculoskeletal Disorders: No Hx Falls: No - GASTROINTESTINAL Hx Gastrointestinal Disorders: No - GENITOURINARY/GYNECOLOGICAL Hx Genitourinary Disorders: No - PSYCHIATRIC Hx Psychophysiologic Disorder: No Hx Substance Use: No - SURGICAL HISTORY Hx Surgeries: Yes Hx Cataract Extraction: Yes (right) Hx Orthopedic Surgery: Yes (left elbow surgery,bilateral knee replacement) - ANESTHESIA Hx Anesthesia: Yes Hx Anesthesia Reactions: No Hx Malignant Hyperthermia: No Meds Allergies/Adverse Reactions: Allergies Allergy/AdvReac Type Severity Reaction Status Date / Time Penicillins Allergy RASH Verified 01/19/18 18:29 Physical Exam - Additional Findings Additional findings: Physical exam: Constitutional- cooperative, awake, alert Head- NCAT, PERRL Eye- PERRL, EOMI ENT- normal exam, MMM. Neck- normal inspection, supple, no JVD Respiratory- CTAB, no wheezes rales rhonchi Cardiovascular- RRR, +S1, +S2 no MRG GI/Abdominal- normal bowel sounds, soft, no mass, no hsm Skin- warm, dry + Bullous pemphigoid with multiple lesions Extremities Exam- + 2 pitting edema bilaterally. normal capillary refill Neurological Exam- alert, awake, oriented Psych- normal mood, normal affect Results - Vital Signs Recent Vital Signs: Last Vital Signs Temp 97.7 F 06/11/17 16:08 Pulse 73 06/11/17 16:08 Resp 20 06/11/17 16:08 BP 142/60 06/11/17 17:14 Pulse Ox 99 06/11/17 16:08 - Labs Labs: Laboratory Results - last 24 hr 06/10/17 06/11/17 06/11/17 21:52 05:09 10:49 POC Glucose (mg/dL) 165 H 103 207 H 06/11/17 15:43 POC Glucose (mg/dL) 367 H Assessment & Plan - Assessment and Plan (Free Text) Plan: 1.Acute respiratory failure with hypoxia sec to CHF exacerbation- improved Pt was initially on Bipap and started lasix, ProBNP was elevated doing better after diuresis currently on 3 liter O2 via NC Pulmonary and Cardio consulted cont diuresis CT of chest ; neg PE Continue PT/OT 2. Acute exacerbation of CHF systolic and diastolic dysfunction ECHO: mod syst dysfxn, apical and septal hypokinesia, mild to mod Pulm HTN, mod MR elevated proBNP cont Lasix restarted Coreg no ACEI as there was a question of possible drug eruption with Quinapril as outpatient Cardio consulted 3. Leukocytosis prob sec to steroids , normalized without abx 4. Bullous pemphigus Chronic skin biopsy done by Retail Reset Merchandiser - I called Dr Cohen's office and staff member said dx if Bullous pemphigus cont Decadron Dr [place] rec to start Doxy IV for the bullous lesions cont Silvadene and Fluocinolone ointment 5.Anemia Chronic iron stores depleted.Will give Venofer IV x 3 days 6. HTN (hypertension) Chronic restarted home meds Coreg 25 mg bid cont lasix but switch to po d/c LIsinopril ( there was a ? of drug eruption when pt took Quinapril/HCTZ accdg to Dr Victor's office progress note) 7. SIRS (systemic inflammatory response syndrome) Acute No signs of infection however pt came with SIRS sxs. 8. Parozysmal afib at present back in SR continue Coreg cardio consulted no anticoagulation for now as per cardio CT of chest : no PE TSH normal 9. Hypokalemia replace with KCl 10. Type 2 DM - Normally well controlled - Elevated glucose today- will start insulin sliding scale and continue to monitor - Changed to consistent carbohydrate diet - Has been on chronic steroids due to Bullous pemphigoid which may also contribute.
[2017-06-12] MEDS: Insulin Regular 100 units/ml SC SCH ×5 (00:04→23:59)
[2017-06-12] MEDS: Enoxaparin 40 mg Syringe SC SCH (08:02)
[2017-06-12] MEDS: Pravastatin Sodium 40 MG TAB PO SCH (08:05)
[2017-06-12] MEDS: Silver Sulfadiazine 1% CREAM (50 gm) TOP SCH ×2 (08:06→16:39)
[2017-06-13] MEDS: Insulin Regular 100 units/ml SC SCH ×4 (07:00→22:12)
[2017-06-13] MEDS: Silver Sulfadiazine 1% CREAM (50 gm) TOP SCH ×2 (08:16→16:47)
[2017-06-13] MEDS: Enoxaparin 40 mg Syringe SC SCH (08:16)
[2017-06-13] MEDS: Pravastatin Sodium 40 MG TAB PO SCH (08:16)
[2017-06-14] MEDS: Insulin Regular 100 units/ml SC SCH ×4 (06:43→22:43)
[2017-06-14] MEDS: Enoxaparin 40 mg Syringe SC SCH (09:06)
[2017-06-14] MEDS: Pravastatin Sodium 40 MG TAB PO SCH (09:08)
[2017-06-14] MEDS: Silver Sulfadiazine 1% CREAM (50 gm) TOP SCH ×2 (18:16→21:28)
--- NOTE | 2017-06-14 19:06 | CP.PCM.PN ---
Subjective - Date & Time of Evaluation Date of Evaluation: 06/14/17 Time of Evaluation: 17:15 - Subjective Subjective: Pt seen and examined. Bullae drying up. Feeling better. Objective - Vital Signs/Intake and Output Vital Signs (last 24 hours): Temp Pulse Resp BP Pulse Ox 98.2 F 92 H 20 126/53 L 97 06/14/17 15:59 06/14/17 15:59 06/14/17 15:59 06/14/17 16:42 06/14/17 15:59 - Medications Medications: Current Medications Carvedilol (Coreg) 25 mg PO Q12 [facility] Last Admin: 06/14/17 09:07 Dose: 25 mg Dexamethasone (Decadron) 2 mg PO DAILY [facility] Last Admin: 06/14/17 09:07 Dose: 2 mg Famotidine (Pepcid) 20 mg PO BID [facility] Last Admin: 06/14/17 16:41 Dose: 20 mg Furosemide (Lasix) 40 mg PO BID [facility] Last Admin: 06/14/17 16:42 Dose: 40 mg Doxycycline Hyclate 100 mg/ (Sodium Chloride) 100 mls @ 100 mls/hr IVPB Q12 [facility] Last Admin: 06/14/17 16:41 Dose: 100 mls/hr Iron Sucrose 100 mg/ Sodium (Chloride) 105 mls @ 105 mls/hr IV DAILY [facility] Last Admin: 06/14/17 16:42 Dose: 105 mls/hr Insulin Human Regular (Humulin R) 0 units SC ACCU-CHECK [facility] PRN Reason: Protocol Last Admin: 06/14/17 16:43 Dose: 2 unit Levalbuterol HCl (Xopenex) 1.25 mg INH RQ8 PRN PRN Reason: Shortness of Breath Pravastatin Sodium (Pravachol) 40 mg PO DAILY [facility] Last Admin: 06/14/17 09:08 Dose: 40 mg Silver Sulfadiazine (Silvadene 1% 50 Gm) 1 applic TOP BID@0900,2100 [facility] Triamcinolone Acetonide (Kenalog 0.025% Cream) 1 applic TP BID@0900,2100 [facility] - Constitutional Appears: No Acute Distress - Head Exam Head Exam: ATRAUMATIC - Eye Exam Eye Exam: absent: Scleral icterus - ENT Exam ENT Exam: Mucous Membranes Moist - Neck Exam Neck Exam: absent: Meningismus - Respiratory Exam Respiratory Exam: absent: Rhonchi, Wheezes, Respiratory Distress - Cardiovascular Exam Cardiovascular Exam: REGULAR RHYTHM, +S1, +S2 - GI/Abdominal Exam GI & Abdominal Exam: Soft. absent: Tenderness - Rectal Exam Rectal Exam: Deferred - Neurological Exam Neurological Exam: Alert, Oriented x3 - Psychiatric Exam Psychiatric exam: Normal Affect Assessment and Plan - Assessment and Plan (Free Text) Assessment: 86 yo female with history of HTN, DM2, HLD and Bullous Pemphigus was brought in because of CHF exacerbation. Managed and improved then transferred to TCU for continuation of management and therapy to regain her strength. 1. CHF, combined systolic and diastolic dysfunction continue Lasix and Xopenex 2. Bullous pemphigus continue Decadron 2mg PO daily also on IV Doxycycline, Silvadene, Triamcinolone 3. Anemia continue Venofer for 3 days 4. HTN BP stable continue Coreg and Lasix 5. Paroxysmal AFib presently in sinus rate controlled continue Coreg no anticoagulation for now as per cardio consult 6. DM2 BS relatively controlled in spite of steroid and no diabetic medication diabetic diet
[2017-06-15] MEDS: Insulin Regular 100 units/ml SC SCH ×4 (06:49→22:32)
[2017-06-15 07:21] LABS: BLOOD UREA NITROGEN 33 mg/dl (7-17); GFR AFRICAN-AMERICAN > 60; GFR NON-AFRICAN AMERICAN 59
[2017-06-15] MEDS: Silver Sulfadiazine 1% CREAM (50 gm) TOP SCH ×2 (08:24→21:38)
[2017-06-15] MEDS: Pravastatin Sodium 40 MG TAB PO SCH (08:26)
[2017-06-16] MEDS: Insulin Regular 100 units/ml SC SCH ×4 (07:21→23:06)
[2017-06-16] MEDS: Pravastatin Sodium 40 MG TAB PO SCH (08:42)
[2017-06-16] MEDS: Silver Sulfadiazine 1% CREAM (50 gm) TOP SCH ×2 (08:43→20:34)
--- NOTE | 2017-06-16 09:48 | CP.PCM.PN ---
Subjective - Date & Time of Evaluation Date of Evaluation: 06/16/17 Time of Evaluation: 10:00 - Subjective Subjective: Patient seen and examined . Sitting in Chair , comfortable in NAD. Feeling stronger and improved. Denies any chest pain , SOB. Hemodynamically stable, afebrile. No acute issues overnight. Objective - Vital Signs/Intake and Output Vital Signs (last 24 hours): Temp Pulse Resp BP Pulse Ox 97.5 F L 74 20 130/58 L 97 06/16/17 07:50 06/16/17 08:41 06/16/17 07:50 06/16/17 08:42 06/16/17 07:50 - Medications Medications: Current Medications Carvedilol (Coreg) 25 mg PO Q12 [facility] Last Admin: 06/16/17 08:41 Dose: 25 mg Dexamethasone (Decadron) 2 mg PO DAILY [facility] Last Admin: 06/16/17 08:41 Dose: 2 mg Famotidine (Pepcid) 20 mg PO BID [facility] Last Admin: 06/16/17 08:42 Dose: 20 mg Furosemide (Lasix) 40 mg PO BID [facility] Last Admin: 06/16/17 08:42 Dose: 40 mg Doxycycline Hyclate 100 mg/ (Sodium Chloride) 100 mls @ 100 mls/hr IVPB Q12 [facility] Last Admin: 06/16/17 08:43 Dose: 100 mls/hr Iron Sucrose 100 mg/ Sodium (Chloride) 105 mls @ 105 mls/hr IV DAILY@1700 [facility] Last Admin: 06/15/17 17:11 Dose: 105 mls/hr Insulin Human Regular (Humulin R) 0 units SC ACCU-CHECK [facility] PRN Reason: Protocol Last Admin: 06/16/17 07:21 Dose: Not Given Levalbuterol HCl (Xopenex) 1.25 mg INH RQ8 PRN PRN Reason: Shortness of Breath Pravastatin Sodium (Pravachol) 40 mg PO DAILY [facility] Last Admin: 06/16/17 08:42 Dose: 40 mg Silver Sulfadiazine (Silvadene 1% 50 Gm) 1 applic TOP BID@0900,2100 [facility] Last Admin: 06/16/17 08:43 Dose: 1 applic Triamcinolone Acetonide (Kenalog 0.025% Cream) 1 applic TP BID@0900,2100 [facility] Last Admin: 06/16/17 08:40 Dose: 1 applic - Labs Labs: 06/15/17 06:51 - Constitutional Appears: Non-toxic, No Acute Distress - Head Exam Head Exam: ATRAUMATIC, NORMAL INSPECTION, NORMOCEPHALIC - Eye Exam Eye Exam: EOMI, Normal appearance, PERRL Pupil Exam: NORMAL ACCOMODATION - ENT Exam ENT Exam: Mucous Membranes Moist, Normal Exam - Neck Exam Neck Exam: Full ROM, Normal Inspection - Respiratory Exam Respiratory Exam: Clear to Ausculation Bilateral. absent: Rales, Rhonchi, Wheezes, Respiratory Distress - Cardiovascular Exam Cardiovascular Exam: REGULAR RHYTHM, +S1, +S2. absent: JVD - GI/Abdominal Exam GI & Abdominal Exam: Soft, Normal Bowel Sounds. absent: Distended, Guarding, Rebound - Rectal Exam Rectal Exam: Deferred - Extremities Exam Extremities Exam: Full ROM, Normal Capillary Refill, Normal Inspection. absent : Pedal Edema - Back Exam Back Exam: NORMAL INSPECTION - Neurological Exam Neurological Exam: Alert, Awake, CN II-XII Intact, Oriented x3 - Skin Additional comments: diffuse multiple skin lesions on different stages , mostly with dry scab due to her chronic pemphigoid condition Assessment and Plan - Assessment and Plan (Free Text) Assessment: 86 yo female with history of HTN, DM2, HLD and Bullous Pemphigus was brought in because of CHF exacerbation. Managed and improved then transferred to TCU for continuation of management and therapy to regain her strength. She has been participating well with PT and feeling better. 1. CHF, combined systolic and diastolic dysfunction continue Lasix , low salt diet , Coreg, statin 2. Bullous pemphigus continue Decadron 2mg PO daily also on IV Doxycycline, Silvadene, Triamcinolone 3. Anemia of iron deficiency received Venofer IV . Will d/c today and start Po 4. HTN BP stable continue Coreg and Lasix 5. Paroxysmal AFib presently in sinus rate controlled continue Coreg no anticoagulation for now as per cardio consult 6. Hyperglycemia BS relatively controlled in spite of steroid and no diabetic medication diabetic diet 7. Deconditioning transferred to TCu for PT, improved 8. DVT prophylaxis Lovenox
[2017-06-16 20:17] VITALS: O2SAT 97
[2017-06-17] MEDS: Insulin Regular 100 units/ml SC SCH (06:55)
[2017-06-17 08:11] VITALS: BP 133/49; PULSE 77; TEMP 97.7
[2017-06-17] MEDS: Pravastatin Sodium 40 MG TAB PO SCH (08:15)
[2017-06-17] MEDS: Silver Sulfadiazine 1% CREAM (50 gm) TOP SCH (08:16)
--- NOTE | 2017-06-17 10:08 | CP.PCM.DIS ---
Provider - Provider Date of Admission: 06/10/17 18:42 Attending physician: Yamilet Rea MD Primary care physician: Dr. Denise Schwartz Consults: physiatry consult 06/10/17 19:55 Wound Care [Nursing Referral for Wound Care] Routine Comment: Physician Instructions: Reason For Exam: generalized lesions Time Spent in preparation of Discharge (in minutes): 15 Hospital Course - Lab Results Lab Results: Most Recent Lab Values Sodium 139 mmol/l (132-148) 06/15/17 06:51 Potassium 3.4 MMOL/L (3.6-5.0) L 06/15/17 06:51 Chloride 97 mmol/L (98-107) L 06/15/17 06:51 Carbon Dioxide 37 mmol/L (22-30) H 06/15/17 06:51 Anion Gap 8 (10-20) L 06/15/17 06:51 BUN 33 mg/dl (7-17) H 06/15/17 06:51 Creatinine 0.9 mg/dl (0.7-1.2) 06/15/17 06:51 Est GFR ( Amer) > 60 06/15/17 06:51 Est GFR (Non-Af Amer) 59 06/15/17 06:51 POC Glucose (mg/dL) 101 mg/dL (65-110) 06/17/17 06:28 Random Glucose 100 mg/dL (65-105) 06/15/17 06:51 Calcium 9.0 mg/dL (8.4-10.2) 06/15/17 06:51 - Hospital Course Hospital Course: 86 yo female with history of HTN, DM2, HLD and Bullous Pemphigus was brought in because of CHF exacerbation. Managed and improved then transferred to TCU for continuation of management and therapy to regain her strength. She participated well with PT and feeling better.Will d/c patient home today. Follow up with PMD Dr. Victor 1. CHF, combined systolic and diastolic dysfunction continue Lasix , low salt diet , Coreg, statin improved 2. Bullous pemphigus continue Decadron 2mg PO daily also on Doxycycline, Silvadene, Triamcinolone 3. Anemia of iron deficiency received Venofer IV . started on Ferrous sulfate 4. HTN BP stable continue Coreg and Lasix 5. Paroxysmal AFib presently in sinus rate controlled continue Coreg no anticoagulation for now as per cardio consult 6. Hyperglycemia BS relatively controlled in spite of steroid and no diabetic medication diabetic diet 7. Deconditioning transferred to TCu for PT, improved 8. DVT prophylaxis Lovenox while in hospital Discharge Exam - Head Exam Head Exam: ATRAUMATIC, NORMAL INSPECTION, NORMOCEPHALIC - Eye Exam Eye Exam: EOMI, Normal appearance, PERRL Pupil Exam: NORMAL ACCOMODATION - ENT Exam ENT Exam: Mucous Membranes Moist, Normal Exam - Neck Exam Neck exam: Full Rom, Normal Inspection - Respiratory Exam Respiratory Exam: Clear to PA & Lateral, NORMAL BREATHING PATTERN. absent: Rales, Rhonchi, Wheezes - Cardiovascular Exam Cardiovascular Exam: REGULAR RHYTHM, RRR, +S1, +S2. absent: JVD - GI/Abdominal Exam GI & Abdominal Exam: Normal Bowel Sounds, Soft. absent: Distended, Guarding, Rebound, Tenderness - Rectal Exam Rectal Exam: Deferred - Extremities Exam Extremities exam: normal capillary refill, normal inspection, pedal pulses present - Back Exam Back exam: NORMAL INSPECTION - Neurological Exam Neurological exam: Alert, CN II-XII Intact, Oriented x3, Reflexes Normal - Psychiatric Exam Psychiatric exam: Normal Affect, Normal Mood - Skin Additional comments: multiple skin lesions with dry scab , different stages of healing Discharge Plan - Discharge Medications Prescriptions: Carvedilol [Coreg] 25 mg PO Q12 #60 tab Dexamethasone [Decadron] 2 mg PO DAILY #30 tab Doxycycline Hyclate 100 mg PO DAILY #30 capsule Famotidine [Pepcid] 20 mg PO BID #60 tab Ferrous Sulfate [Feosol] 325 mg PO BID #60 tab Furosemide [Lasix] 40 mg PO BID #60 tab Pravastatin Sodium [Pravachol] 40 mg PO DAILY #30 tab Silver Sulfadiazine 1% 50 gm [Silvadene 1% 50 gm] 1 applic TOP BID #1 jar Triamcinolone Acetonide [Kenalog 0.025% cream] 1 applic TP BID #1 tube - Follow Up Plan Condition: GOOD Disposition: HOME/ ROUTINE Patient education suggested?: Yes Instructions: Heart Failure (DC) Referrals: Hood Victor MD [Staff Provider] -
== END 2017-06-17 12:15 | disposition home or self-care (01) | DRG 292 ==
LOC: H.TCU 18:42
PROVIDERS: ADMIT Hospitalist; ATTEND Hospitalist
PROC: F07Z9FZ Gait Training/Functional Ambulation Treatment using Assistive, Adaptive, Supportive or Protective Equipment (ICD-10-PCS; principal; 2017-06-10)
PROC: F08Z4FZ Home Management Treatment using Assistive, Adaptive, Supportive or Protective Equipment (ICD-10-PCS; 2017-06-10)
PROC: F07M6FZ Therapeutic Exercise Treatment of Musculoskeletal System - Whole Body using Assistive, Adaptive, Supportive or Protective Equipment (ICD-10-PCS; 2017-06-11)
DX: I11.0 Hypertensive heart disease with heart failure (principal); L10.89 Other pemphigus; E11.65 Type 2 diabetes mellitus with hyperglycemia; I48.0 Paroxysmal atrial fibrillation; D50.9 Iron deficiency anemia, unspecified; I50.42 Chronic combined systolic (congestive) and diastolic (congestive) heart failure; E78.5 Hyperlipidemia, unspecified; Z96.653 Presence of artificial knee joint, bilateral; Z88.0 Allergy status to penicillin

== ENCOUNTER 2017-06-14 10:53 | Day surgery (SDC) | payer MEDICARE ==
[2017-06-14 11:28] VITALS: BMI 25.5
[2017-06-14] MEDS ORDERED: Lidocaine 1% Inj (20ml) ONE (13:52)
[2017-06-14 14:01] VITALS: RESP 18
--- NOTE | 2017-06-14 14:21 | CP.SDSHP ---
Same Day Surgery H & P - History Proposed Procedure: PICC insertion Pre-Op Diagnosis: needs IV abx - Allergies Allergies: Allergies Penicillins Allergy (Verified 06/10/17 18:29) RASH - Physical Exam Vital Signs: Vital Signs 06/14/17 06/14/17 06/14/17 11:32 11:34 13:59 Temperature 97.8 F 98.9 F Pulse Rate 73 73 92 H Respiratory 20 18 Rate Blood Pressure 145/63 180/88 H O2 Sat by Pulse 99 99 Oximetry - Impression Impression: 86 yo female requiring IV abx; plan PICC insertion - Date & Time Date: 06/14/17 Time: 14:00 Short Stay Discharge - Short Stay Discharge Admitting Diagnosis/Reason for Visit: CHF, IV TREATMENT Disposition: HOME/ ROUTINE
--- NOTE | 2017-06-14 14:22 | PCM.SURG1 ---
Surgeon's Initial Post Op Note - Surgeon's Notes Surgeon: Gilberto Quinonez MD Licensed Physical Therapist Assistant: None Type of Anesthesia: Local Pre-Operative Diagnosis: requiring IV abx Operative Findings: patent right basilic vein. catheter length: 36 cm. catheter tip: cavoatrial junction Post-Operative Diagnosis: same Operation Performed: RUE PICC insertion Specimen/Specimens Removed: n/a Estimated Blood Loss: EBL {In ML}: 0 Date of Surgery/Procedure: 06/14/17 Time of Surgery/Procedure: 14:15
[2017-06-14 14:40] VITALS: BP 155/69; PULSE 79; TEMP 97.7; O2SAT 97
--- NOTE | 2017-06-15 14:58 | VASCULAR ---
PROCEDURE: PERIPHERALLY INSERTED CENTRAL VENOUS CATHETER INSERTION CLINICAL HISTORY: 86-year-old female requiring assisted intravenous antibiotics is referred to Interventional Radiology for PICC insertion. PROCEDURE: 1. Focused ultrasound of the right upper extremity vasculature. 2. Ultrasound-guided access. 3. Insertion of peripherally inserted central venous catheter. 4. Fluoroscopic localization of catheter tip. PRE-PROCEDURE FINDINGS: 1. Patent right basilic vein. POST-PROCEDURE FINDINGS: 1. Placement of 4 [place]an single-lumen PICC. 2. Catheter length: 36 cm. 3. Catheter tip at cavoatrial junction. INTERVENTIONAL RADIOLOGIST: Gilberto Quinonez M.D. (the attending was present for the entire procedure) ANESTHESIA: None. MEDICATION: Lidocaine 1% for local subcutaneous analgesia. COMPLICATIONS: None. RADIATION DOSE: Fluoroscopy Time: 19.1 Cumulative Dose: 2.79 mGy PROCEDURE DESCRIPTION AND FINDINGS: The risks, benefits, alternatives and possible complications of the procedure were fully discussed; all questions were answered and informed consent was obtained. The patient was brought into the interventional suite and a pre-procedure 'time-out' was performed. The patient was placed on the fluoroscopy table in the supine position. The right upper extremity was prepped and draped in the usual sterile fashion. Maximum sterile barrier precautions were maintained throughout the entire procedure. Preliminary ultrasound images of the right upper extremity vasculature demonstrate patency of the right basilic vein. Following subcutaneous infiltration of 1% lidocaine for local analgesia, under ultrasound guidance, a 21-gauge needle was advanced into the right basilic vein with real-time visualization of needle entry. The ultrasound images were permanently recorded and submitted to the PACS. A 0.018 guidewire was advanced centrally to the cavoatrial junction. A 4.5 [place]an peel-away sheath was advanced over the guidewire. After obtaining length measurement, a 4 [place]an single-lumen PICC was placed with the tip of the catheter at the cavoatrial junction. The total length of the catheter is 36 cm. The hub of the PICC was secured to the skin using a sterile adhesive bandage. The patient tolerated the procedure well without immediate post-procedure complications and was transferred back to the floor in stable condition. IMPRESSION: SUCCESSFUL INSERTION OF RIGHT UPPER EXTREMITY PICC. PICC OK TO USE.
== END 2017-06-14 14:45 | disposition home or self-care (01) ==
LOC: H.OPSURG 10:53
DX: I50.9 Heart failure, unspecified (principal); Z88.0 Allergy status to penicillin
CPT/HCPCS: 36569; 76937; 77001; A4310; C1751